=== PATIENT | male | born 1985 | race Caucasian/White ===

== ENCOUNTER 2021-10-28 20:21 | Emergency (ER) | payer OTHER, SELFPAY ==
--- NOTE | ~2021-10-28 | CT_ITS ---
EXAMINATION: CT abdomen pelvis w con EXAM DATE: 10/29/2021 00:02 INDICATION: mid and lower abdominal pain . TECHNIQUE: Spiral CT of the abdomen and pelvis was performed following intravenous injection of 100 m L Omnipaque 350. Axial, coronal and sagittal images of the abdomen and pelvis were reviewed. The do se-length product (DLP) for this examination was 437.93 mGy-cm. The exposure was tailored according to patient size (auto mA exposure control), and iterative reconstruction (ASIR) was used as additiona l dose reduction technique. Comparison is made to prior examination from 12/01/2017. FINDINGS: The liver, spleen, adrenal glands and pancreas are unremarkable. Gallbladder is unremarkab le. No biliary obstruction. Portal and splenic veins are patent. Kidneys enhance symmetrically. T here is no hydronephrosis. The prostate is unremarkable. The bladder is unremarkable. There is no retroperitoneal or pelvic lymphadenopathy. There is mild scattered arteriosclerotic disease. Small left inguinal fat-containing hernia. The appendix is not positively visualized. There is no pericecal inflammatory change to suggest appe ndicitis. Mild sigmoid diverticulosis and possible minimal adjacent inflammation, possible uncomplica aki diverticulitis. The stomach and small bowel are unremarkable. There is expected amount of colon ic stool. No free intraperitoneal gas. The heart is normal in size. There are no pericardial or pleural effusions. The lung bases are unremarkable. There are no osteoblastic or osteolytic lesions identified. There is bilateral L5 spondylolysis with grade 1 anterolisthesis L5 on S1. IMPRESSION: 1. Possible acute uncomplicated sigmoid diverticulitis. 2. Bilateral L5 spondylolysis, grade 1 anterolisthesis. Reviewed, dictated and finalized at location B. ITAL PERSONNEL DIRECTOR
[2021-10-28 20:28] VITALS: BP 135/104; PULSE 97; RESP 18; TEMP 37.2; O2SAT 99
[2021-10-28 22:29] VITALS: BP 125/88; PULSE 78; RESP 17; TEMP 37.3; O2SAT 100
[2021-10-28 23:19] LABS: Basophils Percent Auto 0.3 % (0.2-1.2); Eosinophils Percent Auto 0.1 % (0-4.4); Hematocrit 47.1 % (42.0-52.0); Hemoglobin 16.2 g/dL (14.0-18.0); Immature Granulocyte Absolute 0.01 K/mm3 (0.00-0.031); Immature Granulocyte Percent A 0.1 % (0-0.5); Lymphocytes Absolute Auto 1.85 K/mm3 (0.9-3.2); Lymphocytes Percent Auto 27.1 % (18.3-44.2); Mean Corpuscular HGB Conc 34.4 g/dl (32-36); Mean Corpuscular Hemoglobin 30.6 pg (26-34); Mean Platelet Volume 10.1 fl (7.4-10.4); Monocytes Absolute Auto 0.8 K/mm3 (0.1-0.6); Monocytes Percent Auto 12.3 % (2.6-8.5); Neutrophils Absolute Auto 4.1 K/mm3 (1.3-6.7); Neutrophils Percent Auto 60.1 % (45.5-73.1); Platelet Count Result 238 k/mm3 (150-375); Red Blood Count 5.29 M/mm3 (4.6-6.20); Red Cell Distribution Width 12.1 % (11.5-14.5); White Blood Count 6.8 K/mm3 (4.5-10.0)
[2021-10-28 23:21] VITALS: BP 140/93; PULSE 68; RESP 18; O2SAT 100
--- NOTE | 2021-10-28 23:22 | ED.ABDPAIN ---
HPI - Abdominal Pain General Chief Complaint: Abdominal Pain Stated Complaint: nausea, vomiting, diarrhea, cramps, heart burn Time Seen by Provider: 10/28/21 23:04 Source: patient History of Present Illness HPI narrative: 36-year-old male presented to the emergency department for evaluation of nausea vomiting and diarrhea with associated heartburn since last Friday. Patient states he began developing the symptoms on Friday. Patient states that his family also developed symptoms on Friday and Friday but their symptoms resolved. No one was tested for COVID. No is vaccinated against COVID. Patient denies any chest pain or shortness of breath. Patient's primary complaint is mid abdominal pain. Patient does have a prior history of an appendectomy a few years ago. Related Data Allergies Allergy/AdvReac Type Severity Reaction Status Date / Time No Known Allergies Allergy Verified 01/28/20 08:24 Review of Systems Review of Systems: CONSTITUTIONAL: Denies fever, chills, or sweats. EYES: Denies visual changes, redness, or discharge. ENT: Denies rhinorrhea, congestion, sore throat, or otalgia. CARDIOVASCULAR: Denies chest pain, palpitations, or edema. RESPIRATORY: Denies cough or dyspnea. GASTROINTESTINAL: Abdominal pain with associated nausea vomiting and diarrhea GENITOURINARY: Denies dysuria or hematuria. SKIN: Denies rash or itching. MUSCULOSKELETAL: Denies back pain, joint pain, or myalgia. All systems reviewed & are unremarkable except as noted in HPI and below PMFSH Family History Family History (System 01/28/20 @ 08:24 by Ekaterina Mcgee) Other Diabetes mellitus Social History Social History (System 01/28/20 @ 08:24 by Ekaterina Mcgee) Smoking status: Former smoker Alcohol intake: current Exam Narrative: APPEARANCE: Well appearing, no pain, no distress, well-nourished. HEAD: normocephalic, atraumatic. EYES: PERRLA/EOMI, conjunctivae clear. NECK: Supple. No adenopathy, no masses. RESPIRATORY: Airway patent, respirations nonlabored. Clear to auscultation bilaterally, no rales, rhonchi, wheezing. CARDIOVASCULAR: Regular rate and rhythm without murmurs rubs or gallops. ABDOMINAL: Soft, normal bowel sounds lower abdominal tenderness to palpation MUSCULOSKELETAL: Moves all extremities. Strength/ROM intact, No edema, No calf tenderness. NEURO: Alert. Cranial nerves II through XII intact. SKIN: Warm, dry. Normal Color PSYCHIATRIC: Normal affect/mood. Course Course Emergency Course: Patient was updated the results of his labs and imaging. Patient was started on antibiotics for diverticulitis in the emergency department. Patient was educated on the importance having close follow-up with his primary care physician and ultimately with GI. All questions and concerns were addressed. Patient was also educated on reasons to return to the emergency department. Patient was comfortable with the plan for discharge. Vital Signs Vital signs: Vital Signs Temperature 99.0 F 10/28/21 20:28 Pulse Rate 97 10/28/21 20:28 Respiratory Rate 18 10/28/21 20:28 Blood Pressure 135/104 H 10/28/21 20:28 Pulse Oximetry 99 10/28/21 20:28 Temperature 99.2 F 10/28/21 22:29 Pulse Rate 67 10/29/21 04:15 Respiratory Rate 18 10/29/21 04:15 Blood Pressure 110/70 10/29/21 04:15 Pulse Oximetry 96 10/29/21 04:15 MDM - Abdominal Pain Differential Diagnosis Differential diagnosis: Likely acute appendicitis, diverticulitis and small bowel obstruction Lab Data Attestation: I reviewed the patient's lab results. Result diagrams: 10/28/21 23:12 10/28/21 23:12 Labs: Lab Results 10/28/21 10/28/21 10/28/21 Range/Units 23:12 23:12 23:33 WBC 6.8 (4.5-10.0) K/mm3 RBC 5.29 (4.6-6.20) M/mm3 Hgb 16.2 (14.0-18.0) g/dL Hct 47.1 (42.0-52.0) % MCV 89.0 (80-100) fl MCH 30.6 (26-34) pg MCHC 34.4 (32-36) g/dl RDW 12.1 (11.5-14.5) % Plt C
[2021-10-28 23:30] LABS: Alanine Aminotransferase 74 U/L (4-50); Albumin Level 4.8 g/dL (3.5-5.1); Alkaline Phosphatase 62 U/L (38-126); Anion Gap 11 mmol/L (8-16); Aspartate Amino Transferase 42 U/L (17-59); Bilirubin,Total 0.7 mg/dL (0.2-1.3); Blood Urea Nitrogen 12 mg/dL (9-20); Calcium 9.4 mg/dL (8.4-10.2); Carbon Dioxide 24 mmol/L (22-30); Chloride 101 mmol/L (98-107); Estimated CRCL calculation 89 ml/min; Estimated Glomerular Filt Rate > 60; Glucose 89 mg/dL (65-110); Lipase 60 U/L (23-300); Potassium 4.1 mmol/L (3.4-5.0); Sodium 136 mmol/L (137-145)
[2021-10-28] MEDS: ONDANSETRON INJ 4 MG/2 ML VIAL IV PUSH (23:30)
[2021-10-28] MEDS: SODIUM CHLORIDE 0.9% IV 1,000 ML 999 ML IV CONT (23:31)
[2021-10-28 23:57] LABS: Add Urine Microscopic? YES; Appearance Urine Clear (Clear); Bilirubin Urine Negative (Negative); Blood Urine Negative (Negative); Color Urine Yellow (Yellow); Glucose Urine UA Negative (Negative); Ketones Urine 2+ mg/dL (Negative); Leukocyte Esterase Ur Negative LEU/UL (Negative); Mucus Urine Moderate /lpf; Nitrate Urine Negative (Negative); Protein Urine Negative (Negative); RBC Urine 0-2 /hpf (0-2); Specific Grav Ur 1.025 (1.001-1.035); Urobilinogen Urine Negative mg/dL (<2.0); WBC Urine 0-3 /hpf
[2021-10-29 00:36] VITALS: BP 129/74; PULSE 73; RESP 16; O2SAT 97
[2021-10-29 02:43] VITALS: BP 117/80; PULSE 63; RESP 16; O2SAT 97
[2021-10-29] MEDS: ONDANSETRON INJ 4 MG/2 ML VIAL IV PUSH (04:06)
[2021-10-29] MEDS: AMOXICILLIN/CLAVULANATE K 875-125 MG TAB 1 TABLET PO (04:07)
[2021-10-29] MEDS: HYDROcodone/acetaminophen (*CRX) 5-325 MG TABLET 1 TAB PO (04:07)
[2021-10-29 04:15] VITALS: BP 110/70; PULSE 67; RESP 18; O2SAT 96
[2021-11-01 08:56] LABS: SARS-CoV-2 RNA PCR Positive
== END 2021-10-29 04:14 | disposition home or self-care (01) ==
PROVIDERS: Physician Assistant; Emergency Provider Emergency Medicine; PCP Family Medicine
DX: U07.1 COVID-19 (principal); K57.32 Diverticulitis of large intestine without perforation or abscess without bleeding; Z87.891 Personal history of nicotine dependence; M43.06 Spondylolysis, lumbar region
CPT/HCPCS: 36415; 74177; 80053; 81001; 83690; 85025; 96365; 96374; 96375; 99284; A9270; C9803; J0131; J2405; J7030; Q9967; U0003; U0005

== ENCOUNTER 2021-11-19 14:45 | Emergency (ER) | payer OTHER, SELFPAY ==
--- NOTE | ~2021-11-19 | CT_ITS ---
EXAMINATION: CT abdomen pelvis w con DATE: 11/19/2021 17:05 INDICATION: Abscess. Nausea and vomiting. TECHNIQUE: Computed tomography (CT) of the abdomen and pelvis was performed with 100 mL Omnipaque 350 intravenous contrast. Automated exposure control and iterative reconstruction technique were employe d. The dose-length product was 345.26 mGy-cm. COMPARISON: CT abdomen and pelvis 10/28/2021 FINDINGS: The visualized portions of the lung bases demonstrate mild atelectasis. No pleural effusion . The heart size is normal. No pericardial effusion. The liver, gallbladder, spleen, pancreas, adrena l glands, and right kidney are normal. There is a 4 mm cyst in left kidney. There are no dilated loop s of bowel. The appendix is not visualized. There are no pathologically enlarged lymph nodes. There i s no free intraperitoneal fluid. There is no abscess. There is a left inguinal hernia containing fat. There are chronic bilateral L5 pars defects. There is 5 mm anterolisthesis of L5 on S1. There is mil d thoracolumbar spondylosis. IMPRESSION: 1. Left inguinal hernia containing fat. Reviewed, dictated and finalized at location A. ESS INSTALLER
[2021-11-19 15:06] VITALS: BP 117/78; PULSE 78; RESP 18; TEMP 37; O2SAT 99
--- NOTE | 2021-11-19 16:12 | ED.ABDPAIN ---
HPI - Abdominal Pain General Chief Complaint: Abdominal Pain Stated Complaint: abd pain Time Seen by Provider: 11/19/21 15:47 History of Present Illness HPI narrative: 36-year-old male presents to emergency room with lower left quadrant abdominal pain for 10 to 12 days. Patient states he was seen here 10 days ago diagnosed with diverticulitis, completed a course of Augmentin. Patient states he was seen in the urgent care today and told to come to the emergency room for further evaluation. Patient has been taking Dyess daily for abdominal pain. Patient states he has not had a bowel movement in over 3 days. Occasional nausea. Related Data Allergies Allergy/AdvReac Type Severity Reaction Status Date / Time hydromorphone [From Dilaudid] AdvReac Nausea and Verified 11/19/21 15:46 Vomiting Review of Systems Review of Systems: CONSTITUTIONAL: Denies fever, chills, or sweats. EYES: Denies visual changes, redness, or discharge. ENT: Denies rhinorrhea, congestion, sore throat, or otalgia. CARDIOVASCULAR: Denies chest pain, palpitations, or edema. RESPIRATORY: Denies cough or dyspnea. GASTROINTESTINAL: Reports abdominal pain, constipation GENITOURINARY: Denies dysuria or hematuria. SKIN: Denies rash or itching. MUSCULOSKELETAL: Denies back pain, joint pain, or myalgia. NEUROLOGIC: Denies headache, numbness, dizziness, or weakness. PSYCHIATRIC: Denies anxiety or depression. [facility] Family History Family History Mother Diabetes mellitus Heart disease Father Heart disease Social History Social History Smoking status: Current every day smoker Tobacco type: e-cigarettes/vaping Alcohol intake: current Exam Narrative: GENERAL: Well-appearing, well-nourished, and in no acute distress. HEAD: Normocephalic, atraumatic. EYES: PERRLA and EOMI. ENT: Nares clear, no rhinorrhea or epistaxis. Mucous membranes moist. NECK: Supple. No adenopathy or masses. No carotid bruits or JVD CHEST: Clear to auscultation. No respiratory distress. No wheezes rales or rhonchi HEART: Regular rate and rhythm. No murmur heard. Normal peripheral pulses. ABDOMEN: Soft, tenderness to left lower quadrant radiating to right lower quadrant, nondistended, hypoactive bowel sounds. EXTREMITIES: Normal range of motion. No edema. SKIN: Warm, dry, no rash. NEURO: No focal deficits. Alert and oriented x3. PSYCH: Normal mood and affect. Course Vital Signs Vital signs: Vital Signs Temperature 37.0 C 11/19/21 15:06 Pulse Rate 78 11/19/21 15:06 Respiratory Rate 18 11/19/21 15:06 Blood Pressure 117/78 11/19/21 15:06 Pulse Oximetry 99 11/19/21 15:06 Temperature 36.8 C 11/19/21 16:37 Pulse Rate 70 11/19/21 16:37 Respiratory Rate 16 11/19/21 16:37 Blood Pressure 114/68 11/19/21 16:37 Pulse Oximetry 100 11/19/21 16:37 MDM - Abdominal Pain MDM Narrative Medical decision making narrative: CBC and CMP were unremarkable. Scalp films show that patient has moderate to large stool retention. Will recommend patient start on a stool softener, and a clears diet to advance as tolerated. Lab Data Result diagrams: 11/19/21 16:20 11/19/21 16:20 Labs: Lab Results 11/19/21 11/19/21 11/19/21 Range/Units 16:20 16:20 16:20 WBC 8.9 (4.5-10.0) K/mm3 RBC 5.10 (4.6-6.20) M/mm3 Hgb 15.7 (14.0-18.0) g/dL Hct 46.2 (42.0-52.0) % MCV 90.6 (80-100) fl MCH 30.8 (26-34) pg MCHC 34.0 (32-36) g/dl RDW 12.3 (11.5-14.5) % Plt Count 301 (150-375) k/mm3 MPV 10.3 (7.4-10.4) fl Immature Gran % (Auto) 0.2 (0-0.5) % Neut % (Auto) 81.1 H (45.5-73.1) % Lymph % (Auto) 13.1 L (18.3-44.2) % Crane % (Auto) 5.2 (2.6-8.5) % Eos % (Auto) 0.1 (0-4.4) % Baso % (Auto) 0.3 (0.2-1.2) % Lymph # (Auto) 1.16 (0.9-3.2) K/mm3 Crane # (Auto)
[2021-11-19] MEDS: SODIUM CHLORIDE 0.9% IV 1,000 ML 999 ML IV CONT (16:22)
[2021-11-19 16:35] LABS: Basophils Percent Auto 0.3 % (0.2-1.2); Eosinophils Percent Auto 0.1 % (0-4.4); Hematocrit 46.2 % (42.0-52.0); Hemoglobin 15.7 g/dL (14.0-18.0); Immature Granulocyte Absolute 0.02 K/mm3 (0.00-0.031); Immature Granulocyte Percent A 0.2 % (0-0.5); Lymphocytes Absolute Auto 1.16 K/mm3 (0.9-3.2); Lymphocytes Percent Auto 13.1 % (18.3-44.2); Mean Corpuscular Hemoglobin 30.8 pg (26-34); Mean Corpuscular Volume 90.6 fl (80-100); Mean Platelet Volume 10.3 fl (7.4-10.4); Monocytes Absolute Auto 0.5 K/mm3 (0.1-0.6); Monocytes Percent Auto 5.2 % (2.6-8.5); Neutrophils Absolute Auto 7.2 K/mm3 (1.3-6.7); Neutrophils Percent Auto 81.1 % (45.5-73.1); Platelet Count Result 301 k/mm3 (150-375); Red Cell Distribution Width 12.3 % (11.5-14.5); White Blood Count 8.9 K/mm3 (4.5-10.0)
[2021-11-19 16:37] VITALS: BP 114/68; PULSE 70; RESP 16; TEMP 36.8; O2SAT 100
[2021-11-19 16:42] LABS: Add Urine Microscopic? YES; Appearance Urine Clear (Clear); Bilirubin Urine Negative (Negative); Blood Urine Negative (Negative); Color Urine Straw (Yellow); Glucose Urine UA Negative (Negative); Ketones Urine 1+ mg/dL (Negative); Leukocyte Esterase Ur Negative LEU/UL (Negative); Mucus Urine Rare /lpf; Nitrate Urine Negative (Negative); Protein Urine Negative (Negative); RBC Urine 0-2 /hpf (0-2); Specific Grav Ur 1.008 (1.001-1.035); Urobilinogen Urine Negative mg/dL (<2.0); WBC Urine 0-3 /hpf
[2021-11-19 16:47] LABS: Alanine Aminotransferase 146 U/L (4-50); Albumin Level 4.4 g/dL (3.5-5.1); Alkaline Phosphatase 62 U/L (38-126); Anion Gap 9 mmol/L (8-16); Aspartate Amino Transferase 45 U/L (17-59); Bilirubin,Total 0.7 mg/dL (0.2-1.3); Blood Urea Nitrogen 10 mg/dL (9-20); Calcium 8.8 mg/dL (8.4-10.2); Carbon Dioxide 25 mmol/L (22-30); Chloride 105 mmol/L (98-107); Estimated CRCL calculation 89 ml/min; Estimated Glomerular Filt Rate > 60; Glucose 86 mg/dL (65-110); Lipase 56 U/L (23-300); Potassium 3.8 mmol/L (3.4-5.0); Sodium 139 mmol/L (137-145)
[2021-11-19 17:33] VITALS: BP 112/64; PULSE 68; RESP 16; TEMP 36.3; O2SAT 99
== END 2021-11-19 17:45 | disposition home or self-care (01) ==
PROVIDERS: Emergency Medicine; Emergency Provider Nurse Practitioner Family; PCP Family Medicine
DX: R10.32 Left lower quadrant pain (principal); K59.00 Constipation, unspecified; F17.290 Nicotine dependence, other tobacco product, uncomplicated; K40.90 Unilateral inguinal hernia, without obstruction or gangrene, not specified as recurrent
CPT/HCPCS: 36415; 74177; 80053; 81001; 83690; 85025; 96360; 99284; J7030; Q9967

== ENCOUNTER 2022-01-08 15:40 | Emergency (ER) | payer OTHER, SELFPAY ==
--- NOTE | ~2022-01-08 | XR_ITS ---
EXAM: XR finger 1st LT min 2V HISTORY: hit distal left thumb with a hammer last night COMPARISON: None available FINDINGS: Minimally displaced and minimally comminuted fracture of the distal tuft of the left thumb . No other fracture detected. Normal mineralization. Joint spaces maintained. No radio opaque foreign body. IMPRESSION: Minimally displaced, mildly comminuted fracture of the distal tuft of the left thumb. Reviewed, dictated and finalized at location K.
[2022-01-08 15:56] VITALS: BP 131/95; PULSE 88; RESP 18; TEMP 36.5; O2SAT 97
--- NOTE | 2022-01-08 16:04 | ED.WOUNDLAC ---
HPI - Wound/Laceration General Chief Complaint: Wound/Laceration Stated Complaint: lt thumb injury-work related Time Seen by Provider: 01/08/22 16:02 Source: patient and RN notes reviewed Mode of arrival: ambulatory Limitations: no limitations History of Present Illness HPI narrative: 36-year-old male presents with concern for injury to the first digit of the left hand. Reports yesterday he hit the distal digit with a hammer. Reports pain, bruising. Reports bruising under the fingernail. He denies any open skin, lacerations, abrasions, warm. Reports a feeling of pressure under his nail. Related Data Allergies Allergy/AdvReac Type Severity Reaction Status Date / Time hydromorphone [From Dilaudid] AdvReac Nausea and Verified 01/08/22 16:00 Vomiting Review of Systems Review of Systems: CONSTITUTIONAL: Denies malaise, chills, sweats, or fever. SKIN: Reports bruising under the fingernail of the left first digit MUSCULOSKELETAL: Reports pain, swelling, bruising to the distal first digit of the left hand NEUROLOGIC: Denies numbness, weakness All systems reviewed & are unremarkable except as noted in HPI and below PMFSH Family History Family History Mother Diabetes mellitus Heart disease Father Heart disease Social History Social History Smoking status: Current every day smoker Tobacco type: e-cigarettes/vaping Alcohol intake: current Comments At time of signature, agree with nursing past medical, surgical, social and family history. There is no relevant family history pertinent to the presenting complaint Exam Narrative: GENERAL: Well-appearing, well-nourished, and in no acute distress. HEAD: Normocephalic EYES: PERRLA, conjunctivae clear NECK: Supple. CHEST: Speaks in full sentences. No respiratory distress. HEART: Regular rate and rhythm. Normal and equal peripheral pulses. EXTREMITIES: First digit of left hand has normal strength and sensation. 5/5 strength with digit flexion, extension. Range of motion normal. No clubbing, cyanosis, or edema noted. Ecchymosis and tenderness noted to the distal digit. Skin intact. Normal digital cascade with flexion of fingers, median, ulnar and radial nerve intact. Normal sensation of each side of finger. Can perform 'okay' sign, 'cross over finger test of index and middle fingers' and 'thumbs up' sign. No scissoring. Normal thumb opposition. Good capillary refill and radial pulse. Distal capillary refill less than 3 seconds. Patient is right/left hand dominant SKIN: Warn, dry, intact, pink. No rash. Subungual hematoma noted to the first digit of the left hand NEURO: Alert and oriented x3. PSYCH: Normal mood and affect Course Course Emergency Course: Patient is aware of diagnosis, understands and agrees to treatment plan. Anticipatory guidance given. Patient agrees to follow-up as directed and is aware of reasons to seek care at the emergency department. Portions of this record may have been created with voice recognition software Level of Care: Express Care Visit Vital Signs Vital signs: Vital Signs Temperature 97.7 F 01/08/22 15:56 Pulse Rate 88 01/08/22 15:56 Respiratory Rate 18 01/08/22 15:56 Blood Pressure 131/95 H 01/08/22 15:56 Pulse Oximetry 97 01/08/22 15:56 Temperature 97.7 F 01/08/22 15:56 Pulse Rate 88 01/08/22 15:56 Respiratory Rate 18 01/08/22 15:56 Blood Pressure 131/95 H 01/08/22 15:56 Pulse Oximetry 97 01/08/22 15:56 Reviewed. Procedures Nail Trephination Nail Trephination #1: Nail Trephination Date: 01/08/22 Time out: Yes Location (finger): left and thumb Sterile prep: betadine Method of drainage: nail cautery Procedure successful: Yes Patient tolerated procedure: well Nail Trephination Comment: Neosporin and sterile bandage applied MDM -
== END 2022-01-08 16:30 | disposition home or self-care (01) ==
PROVIDERS: Emergency Provider Nurse Practitioner
DX: S62.522A Displaced fracture of distal phalanx of left thumb, initial encounter for closed fracture (principal); W27.8XXA Contact with other nonpowered hand tool, initial encounter; S60.112A Contusion of left thumb with damage to nail, initial encounter; F17.290 Nicotine dependence, other tobacco product, uncomplicated
CPT/HCPCS: 11740; 29130; 73140; 99213; G0463

== ENCOUNTER 2022-04-11 16:03 | Emergency (ER) | payer OTHER, SELFPAY ==
--- NOTE | ~2022-04-11 | CT_ITS ---
EXAMINATION: CT abdomen pelvis w con DATE: 04/11/2022 19:46 INDICATION: Generalized abdominal pain. TECHNIQUE: Computed tomography (CT) of the abdomen and pelvis was performed with 100 mL Omnipaque 300 intravenous contrast. Automated exposure control and iterative reconstruction technique were employe d. The dose-length product was 317.29 mGy-cm. COMPARISON: CT abdomen and pelvis 11/19/21 FINDINGS: The visualized portions of the lung bases demonstrate mild atelectasis on the left. There i s a 3 mm nodule in right lower lobe, likely benign. No pleural effusion. The heart size is normal. No pericardial effusion. The liver, spleen, gallbladder, pancreas, adrenal glands, and right kidney are normal. There is a 5 mm cyst in left kidney. There is a left inguinal hernia containing fat. There a re no dilated loops of bowel. The appendix is not visualized. There are no pathologically enlarged ly mph nodes. There is no free intraperitoneal fluid. There are chronic bilateral L5 pars defects. There is 5 mm anterolisthesis of L5 on S1. There is mild thoracolumbar spondylosis. IMPRESSION: 1. Left inguinal hernia containing fat. Reviewed, dictated and finalized at location A.
[2022-04-11 16:40] VITALS: BP 132/81; PULSE 91; RESP 18; TEMP 37.2; O2SAT 99
[2022-04-11 17:29] LABS: Basophils Percent Auto 0.5 % (0.2-1.2); Eosinophils Absolute Auto 0.1 K/mm3 (0-0.3); Eosinophils Percent Auto 1.1 % (0-4.4); Hematocrit 46.2 % (42.0-52.0); Hemoglobin 16.4 g/dL (14.0-18.0); Immature Granulocyte Absolute 0.02 K/mm3 (0.00-0.031); Immature Granulocyte Percent A 0.2 % (0-0.5); Lymphocytes Absolute Auto 1.73 K/mm3 (0.9-3.2); Lymphocytes Percent Auto 19.8 % (18.3-44.2); Mean Corpuscular HGB Conc 35.5 g/dl (32-36); Mean Corpuscular Hemoglobin 30.7 pg (26-34); Mean Corpuscular Volume 86.4 fl (80-100); Mean Platelet Volume 10.1 fl (7.4-10.4); Monocytes Absolute Auto 0.7 K/mm3 (0.1-0.6); Monocytes Percent Auto 7.7 % (2.6-8.5); Neutrophils Absolute Auto 6.2 K/mm3 (1.3-6.7); Neutrophils Percent Auto 70.7 % (45.5-73.1); Platelet Count Result 320 k/mm3 (150-375); Red Blood Count 5.35 M/mm3 (4.6-6.20); Red Cell Distribution Width 12.5 % (11.5-14.5); White Blood Count 8.7 K/mm3 (4.5-10.0)
[2022-04-11 17:35] LABS: Appearance Urine Clear (Clear); Bilirubin Urine Negative (Negative); Blood Urine Negative (Negative); Color Urine Yellow (Yellow); Glucose Urine UA Negative (Negative); Ketones Urine Negative (Negative); Leukocyte Esterase Ur Negative LEU/UL (Negative); Nitrate Urine Negative (Negative); Protein Urine Negative (Negative); Urobilinogen Urine 0.2 mg/dL (<2.0)
[2022-04-11 17:38] LABS: Add Urine Microscopic? NO
[2022-04-11 17:41] LABS: Alanine Aminotransferase 69 U/L (6-50); Albumin Level 5.1 g/dL (3.5-5.1); Alkaline Phosphatase 74 U/L (38-126); Anion Gap 12 mmol/L (8-16); Aspartate Amino Transferase 34 U/L (17-59); Blood Urea Nitrogen 11 mg/dL (9-20); Carbon Dioxide 25 mmol/L (22-30); Chloride 103 mmol/L (98-107); Estimated CRCL calculation 88 ml/min; Estimated Glomerular Filt Rate > 60; Glucose 100 mg/dL (65-110); Lipase 81 U/L (23-300); Potassium 3.8 mmol/L (3.4-5.0); Sodium 140 mmol/L (137-145)
[2022-04-11 19:31] VITALS: BP 119/81; PULSE 82; RESP 16; O2SAT 98
--- NOTE | 2022-04-11 19:37 | ED.GENADULT ---
HPI - General Adult General Chief complaint: Abdominal Pain Stated complaint: Left Flank Pain Time Seen by Provider: 04/11/22 19:01 History of Present Illness HPI narrative: 29-year-old male history of diverticulitis presenting to the emergency department for evaluation of left lower and left upper abdominal pain. Patient states that 3 days ago he developed some left lower quadrant abdominal pain. Patient did have associated nausea and vomiting. Patient did start taking mag citrate to help with constipation and states that after having a large bowel movement that his pain did improve but is still persistent. Patient states that while his pain started in the left lower quadrant it is affecting his left upper quadrant more at this time. Patient denies any associated chest pain or shortness of breath Patient states he does still have pain but states the nausea is controlled at this point. Patient was diagnosed with an episode of diverticulitis back in October. Patient does have follow-up scheduled with GI on June 06 Related Data Allergies Allergy/AdvReac Type Severity Reaction Status Date / Time hydromorphone [From Dilaudid] AdvReac Nausea and Verified 03/29/22 11:20 Vomiting Review of Systems Review of Systems: CONSTITUTIONAL: Denies fever, chills, or sweats. EYES: Denies visual changes, redness, or discharge. ENT: Denies rhinorrhea, congestion, sore throat, or otalgia. CARDIOVASCULAR: Denies chest pain, palpitations, or edema. RESPIRATORY: Denies cough or dyspnea. GASTROINTESTINAL: See HPI GENITOURINARY: Denies dysuria or hematuria. SKIN: Denies rash or itching. MUSCULOSKELETAL: Denies back pain, joint pain, or myalgia. NEUROLOGIC: Denies headache, numbness, or weakness. PMFSH Past Medical History Medical History (Updated 04/12/22 @ 00:00 by [facility] Daemon) Left inguinal hernia Family History Family History Mother Diabetes mellitus Heart disease Father Heart disease Social History Social History Smoking status: Current every day smoker Tobacco type: e-cigarettes/vaping Alcohol intake: current Exam Narrative: APPEARANCE: Well appearing, no pain, no distress, well-nourished. HEAD: normocephalic, atraumatic. EYES: PERRLA/EOMI, conjunctivae clear. NOSE: Normal no drainage NECK: Supple. No adenopathy, no masses. RESPIRATORY: Airway patent, respirations nonlabored. Clear to auscultation bilaterally, no rales, rhonchi, wheezing. CARDIOVASCULAR: Regular rate and rhythm without murmurs rubs or gallops. ABDOMINAL: Soft, nontender, nondistended, normal bowel sounds. No reproducible tenderness to palpation. MUSCULOSKELETAL: Moves all extremities. Strength/ROM intact, No edema, No calf tenderness. NEURO: Alert. Cranial nerves II through XII intact. Grossly intact SKIN: Warm, dry. Normal Color Course Course Emergency Course: Patient was treated with IV pain meds and saline. CT scan to evaluate for diverticulitis was ordered. Scan showed a left inguinal fat-containing hernia with no evidence of small bowel obstruction. Patient will be discharged home with instructions to continue with MiraLAX. Patient will be instructed to continue Tylenol for pain control and will also be given Zofran for nausea control. Patient will be encouraged to have close follow-up with GI as scheduled. Affect. Patient was well-appearing at time of discharge from the emergency department. Vital Signs Vital signs: Vital Signs Temperature 98.9 F 04/11/22 16:40 Pulse Rate 91 04/11/22 16:40 Respiratory Rate 18 04/11/22 16:40 Blood Pressure 132/81 04/11/22 16:40 Pulse Oximetry 99 04/11/22 16:40 Oxygen Delivery Room Air 04/11/22 16:40 Temperature 98.9 F 04/11/22 16:40 Pulse Rate 60 04/11/22 21:13 Respiratory Rate 18 04/11/22 21:13 Blood Pressure 113/74 04/11/22 21:13 Pulse
[2022-04-11] MEDS: SODIUM CHLORIDE 0.9% IV 1,000 ML 999 ML IV CONT (20:03)
[2022-04-11 21:13] VITALS: BP 113/74; PULSE 60; RESP 18; O2SAT 99
== END 2022-04-11 21:14 | disposition home or self-care (01) ==
PROVIDERS: Emergency Medicine; Emergency Provider Emergency Medicine; PCP Family Medicine
DX: K40.90 Unilateral inguinal hernia, without obstruction or gangrene, not specified as recurrent (principal); R11.2 Nausea with vomiting, unspecified; F17.290 Nicotine dependence, other tobacco product, uncomplicated
CPT/HCPCS: 36415; 74177; 80053; 81003; 83690; 85025; 96365; 96374; 99284; J0131; J7030; Q9967

== ENCOUNTER 2022-05-29 12:28 | Emergency (ER) | payer OTHER, SELFPAY ==
[2022-05-29] VITALS (8 sets, daily range): BP systolic 108–128; BP diastolic 72–83; PULSE 56–80; RESP 11–18; TEMP 36.7; O2SAT 99–100
--- NOTE | ~2022-05-29 | CT_ITS ---
EXAMINATION: CT abdomen pelvis w con INDICATION: Left lower quadrant pain TECHNIQUE: Computed tomographic images of the abdomen and pelvis were obtained after the administrati on of 100 cc of Omnipaque 350 intravenous contrast. The dose-length product (DLP) was 324.87 mGy-cm. Automated exposure control and iterative reconstruction technique were employed. COMPARISON: 04/11/2022 FINDINGS: A stable nodule of the right lobe is consistent with old granulomatous disease. There is mi ld dependent atelectasis. The heart size is normal. The liver, spleen, pancreas, gallbladder, and adr enal glands are normal. The right kidney is unremarkable. There is a 5 mm cyst of the left kidney. No pathologically enlarged abdominal or pelvic lymph nodes are identified. There is no free intraperito aline gas or evidence of bowel obstruction. 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 There is a small left inguinal hernia containing fat. IMPRESSION: 1. No CT correlate for the patient's symptoms. Reviewed, dictated and finalized at location B.
--- NOTE | ~2022-05-29 | XR_ITS ---
EXAMINATION: XR chest 2V DATE: 05/29/2022 13:27 INDICATION: Chest pain. Epigastric abdominal pain. TECHNIQUE: Frontal and lateral views of the chest were obtained. COMPARISON: CT abdomen and pelvis 04/11/2022 FINDINGS: There is no pneumonia, pleural effusion, or pneumothorax. The heart size is normal. IMPRESSION: 1. No acute cardiopulmonary disease. Reviewed, dictated and finalized at location A.
--- NOTE | 2022-05-29 12:45 | ECG_ITS ---
Measurements Intervals [place] Rate: 72 P: 31 FL: 133 QRS: 19 QRSD: 90 T: 48 QT: 365 QTc: 400 Interpretive Statements SINUS RHYTHM BASELINE ARTIFACT- I, III, AVR, AVL, AVF NORMAL ECG NO PREVIOUS ECG AVAILABLE FOR COMPARISON Electronically Signed On 05-29-2022 15:05:54 CDT by Heri Erwin D.O.
[2022-05-29 13:20] LABS: Basophils Percent Auto 0.6 % (0.2-1.2); Eosinophils Absolute Auto 0.1 K/mm3 (0-0.3); Eosinophils Percent Auto 1.4 % (0-4.4); Hematocrit 46.9 % (42.0-52.0); Immature Granulocyte Absolute 0.01 K/mm3 (0.00-0.031); Immature Granulocyte Percent A 0.2 % (0-0.5); Lymphocytes Absolute Auto 1.57 K/mm3 (0.9-3.2); Lymphocytes Percent Auto 24.8 % (18.3-44.2); Mean Corpuscular HGB Conc 34.1 g/dl (32-36); Mean Corpuscular Hemoglobin 30.3 pg (26-34); Mean Corpuscular Volume 88.8 fl (80-100); Mean Platelet Volume 10.1 fl (7.4-10.4); Monocytes Absolute Auto 0.6 K/mm3 (0.1-0.6); Monocytes Percent Auto 9.2 % (2.6-8.5); Neutrophils Percent Auto 63.8 % (45.5-73.1); Platelet Count Result 293 k/mm3 (150-375); Red Blood Count 5.28 M/mm3 (4.6-6.20); Red Cell Distribution Width 12.5 % (11.5-14.5); White Blood Count 6.3 K/mm3 (4.5-10.0)
[2022-05-29 13:30] LABS: Alanine Aminotransferase 49 U/L (6-50); Alkaline Phosphatase 59 U/L (38-126); Anion Gap 13 mmol/L (8-16); Aspartate Amino Transferase 32 U/L (17-59); Blood Urea Nitrogen 13 mg/dL (9-20); Calcium 9.5 mg/dL (8.4-10.2); Carbon Dioxide 26 mmol/L (22-30); Chloride 101 mmol/L (98-107); Estimated CRCL calculation 88 ml/min; Estimated Glomerular Filt Rate > 60; Glucose 98 mg/dL (65-110); Lipase 59 U/L (23-300); Potassium 3.8 mmol/L (3.4-5.0); Sodium 140 mmol/L (137-145)
[2022-05-29 13:42] LABS: Prothrombin Time 13.2 Seconds (11.1-14.7); Troponin I < 0.012 ng/mL (0.000-0.034)
[2022-05-29 13:43] LABS: Partial Thromboplastin Time 30.4 SECONDS (22.3-36.8)
--- NOTE | 2022-05-29 15:02 | ED.CHESTPAIN ---
HPI - Chest Pain General Chief Complaint: Chest Pain <PRASHANTH Connor Last Filed: 05/29/22 20:36> Stated Complaint: chest pain, SOB <PRASHANTH Connor Last Filed: 05/29/22 20:36> Time Seen by Provider: 05/29/22 15:01 <PRSAHANTH Connor Last Filed: 05/29/22 20:36> History of Present Illness HPI narrative: Patient is a 37-year-old male here for evaluation of epigastric discomfort/chest pain for the past 2 weeks. He states the pain is intermittent in nature, and comes on without obvious trigger but is worse with certain positions. He states it is a sharp stabbing pain that remains in his epigastric region and also under his left ribs. He denies any cough, diaphoresis, difficulty breathing, fevers or chills. Additionally notes a pain in his left lower quadrant that is intermittent in nature as well, described as sharp and stabbing. He has a history of diverticulitis, states this feels different. His bowel movements have been normal, denies nausea currently but does state that he vomited once. No cardiac history. <PRASHANTH Connor Last Filed: 05/29/22 20:36> Related Data Allergies/Adverse Reactions: Allergies Allergy/AdvReac Type Severity Reaction Status Date / Time No Known Allergies Allergy Verified 05/29/22 12:49 <PRASHANTH Connor Last Filed: 05/29/22 20:36> Review of Systems Review of Systems: Gen: Denies fevers or chills Eyes: Denies eye pain or visual change ENT: Denies congestion Respiratory: Denies shortness of breath or cough CV: Denies chest pain or palpitations GI: Reports left lower /epigastric abdominal pain and vomiting Denies emesis or diarrhea denies burning, urgency, frequency or hematuria Musculoskeletal: Denies back pain or muscle pain Neuro: Denies numbness, tingling, weakness or focal weakness Skin: Denies rash Except as documented, all other systems reviewed and negative <PRASHANTH Connor Last Filed: 05/29/22 20:36> [facility] Past Medical History Medical History: Medical History (Updated 05/30/22 @ 00:00 by Carissa Apariciorayne) Left inguinal hernia <Shreya Mcfarland PA-C - Last Filed: 05/29/22 20:36> Family History Family History: Family History Mother Diabetes mellitus Heart disease Father Heart disease <PRASHANTH Connor Last Filed: 05/29/22 20:36> Social History Social History: Social History Smoking packs per day: 1 Smoking cigarettes per day: 20.0 Years smoked: 10 Smoking pack-years: 10.00 Smoking status: Current every day smoker Tobacco type: cigarettes Alcohol intake: never Substance use: never Spiritual care concerns: No <PRASHANTH Connor Last Filed: 05/29/22 20:36> Exam Narrative: APPEARANCE: Well appearing, no pain in distress, well-nourished. Head: Normocephalic and atraumatic. EYES: PERRLA/EOMI, conjunctivae clear NOSE: No nasal drainage EARS: External ear normal in appearance THROAT: Oropharynx is clear. Mucous membranes are moist. NECK: Supple. No adenopathy, no masses. RESPIRATORY: Airway patent, respirations nonlabored. Clear to auscultation bilaterally, no rales, rhonchi, wheezing. CARDIOVASCULAR: Regular rate and rhythm without murmurs, rubs, or gallops. ABDOMINAL: Tender to palpation in left lower quadrant. Normoactive bowel sounds. Soft, nondistended. No rebound tenderness or guarding. MUSCULOSKELETAL: Extremities are warm and well-perfused. Moves all extremities well. No edema. NEURO: Normal speech. No focal neurologic deficits. SKIN: Skin is warm and dry. No rashes. PSYCHIATRIC: Normal affect/mood.. <PRASHANTH Connor Last Filed: 05/29/22 20:36> Course COMPOSITION MIXER/PA Physician Supervision For this patient encounter, I reviewed the COMPOSITION MIXER or PA documentation, treatm
[2022-05-29] MEDS: SODIUM CHLORIDE 0.9% IV 1,000 ML 999 ML IV CONT (15:44)
[2022-05-29] MEDS: PANTOPRAZOLE SODIUM IV 40 MG VIAL IV PUSH (15:45)
[2022-05-29] MEDS: ONDANSETRON INJ 4 MG/2 ML VIAL IV PUSH (15:45)
[2022-05-29 16:12] LABS: Troponin I < 0.012 ng/mL (0.000-0.034)
[2022-05-29] MEDS: KETOROLAC 15 MG/ML VIAL (*BKC) IV PUSH (17:09)
== END 2022-05-29 18:08 | disposition home or self-care (01) ==
PROVIDERS: Emergency Provider Emergency Medicine; PCP Family Medicine
DX: R07.89 Other chest pain (principal); F17.210 Nicotine dependence, cigarettes, uncomplicated
CPT/HCPCS: 36415; 71046; 74177; 80053; 83690; 84484; 85025; 85610; 85730; 93005; 96361; 96374; 96375; 99284; C9113; J1885; J2405; J7030; Q9967

== ENCOUNTER 2022-06-06 08:00 | Outpatient (NON) | payer OTHER, SELFPAY | END 2022-06-06 08:01 | disposition home or self-care (01) | LOC: ANHLAB 06-07 08:12 | PROVIDERS: PCP Family Medicine; Visit Provider Internal Medicine Gastroenterology | DX: K57.92 Diverticulitis of intestine, part unspecified, without perforation or abscess without bleeding (principal) | CPT/HCPCS: 88305 ==

== ENCOUNTER 2022-09-16 16:43 | Emergency (ER) | payer OTHER, SELFPAY ==
--- NOTE | ~2022-09-16 | US_ITS ---
Testicular ultrasound with doppler. Indication: Left-sided pain and swelling. Technique: Real-time sonography the scrotum was performed. Color flow Doppler and Doppler spectral an alysis were performed. Findings: The testes are homogeneous in echotexture bilaterally. There is no evidence of an intrates ticular mass. The right testis measures 5.0 x 2.5 x 3.1 cm and the left 4.5 x 2.1 x 2.9 cm. There is color-flow seen to both testes. Arterial and venous spectral waveforms are seen in both testes. There is no sonographic evidence of torsion. Right epididymis unremarkable. Left epididymal head cyst vers us spermatocele measures 1.7 cm in diameter. Impression: No testicular mass or torsion. 1.7 cm left epididymal head cyst versus spermatocele. Reviewed, dictated and finalized at [facility]. [employer] Impression: No testicular mass or torsion. 1.7 cm left epididymal head cyst versus spermatocele.
[2022-09-16 16:53] VITALS: BP 134/84; PULSE 76; RESP 16; TEMP 36.7; O2SAT 98
--- NOTE | 2022-09-16 17:50 | ED.MALEGU ---
HPI - Male Genitourinary General Chief complaint: Urogenital-Male <Genet Danver DARRON, DO - Last Filed: 10/03/22 13:05> Stated complaint: lump on left testicle, pain <Genet Danver DARRON, DO - Last Filed: 10/03/22 13:05> Time Seen by Provider: 09/16/22 17:44 <Genet Layne III, DO - Last Filed: 10/03/22 13:05> History of Present Illness HPI Narrative: Pt presents with left testicular pain and swelling for a couple of days. Pt says he has had this in the past but not this bad and they said it was scar tissue but pt has never had an ultrasound. Pt says he has a history of a hernia in this area and it may be that. Pt denies urinary symptoms. <Genet Layne III, DO - Last Filed: 10/03/22 13:05> Related Data Home medications: Home Medications Medication Instructions Recorded Confirmed No Home Medications 09/24/22 09/24/22 <Genet Danver DARRON, DO - Last Filed: 10/03/22 13:05> Allergies/Adverse reactions: Allergies Allergy/AdvReac Type Severity Reaction Status Date / Time No Known Allergies Allergy Verified 09/24/22 12:05 <Genet Danver DARRON, DO - Last Filed: 10/03/22 13:05> Review of Systems Review of Systems: All systems reviewed & are unremarkable except as noted in HPI and below <Genet Danver DARRON, DO - Last Filed: 10/03/22 13:05> [facility] Past Medical History Medical History: Medical History Colon cancer screening Dysphagia Epigastric abdominal pain IBS (irritable bowel syndrome) Left inguinal hernia Nausea <Genet Danver DARRON, DO - Last Filed: 10/03/22 13:05> Family History Family History: Family History Mother Diabetes mellitus Heart disease Father Heart disease <Genet Danver DARRON, DO - Last Filed: 10/03/22 13:05> Social History Social History: Social History Smoking packs per day: 1 Smoking cigarettes per day: 20.0 Years smoked: 10 Smoking pack-years: 10.00 Smoking status: Current every day smoker Tobacco type: e-cigarettes/vaping Alcohol intake: current Substance use: never Lack of Food: Never True Current Housing: I Have Housing Concerned About Future Housing: No Difficulty Paying Gas/Electric Bills: No Difficulty Paying for Meds: No Currently Unemployed: No Education: High School Diploma/GED Difficulty w/ Childcare or Family Care: No Spiritual care concerns: No <Genet Igor Layne III, DO - Last Filed: 10/03/22 13:05> Exam Const: General: healthy appearing <Genet Igor Layne III, DO - Last Filed: 10/03/22 13:05> Nutritional Appearance: well nourished <Genet Igor Layne III, DO - Last Filed: 10/03/22 13:05> Limitations: no limitations <Genet Igor Layne III, DO - Last Filed: 10/03/22 13:05> Neck: Neck: normal visual inspection and no lymphadenopathy <Genet Igor Layne III, DO - Last Filed: 10/03/22 13:05> Chest: Chest palpation & inspection: normal inspection of the chest <Genet Igor Layne III, DO - Last Filed: 10/03/22 13:05> Resp: Effort & Inspection: normal respiratory effort <Genet Igor Layne III, DO - Last Filed: 10/03/22 13:05> Auscultation: clear to auscultation bilaterally <Genet Igor Layne III, DO - Last Filed: 10/03/22 13:05> Cardio: Rate: regular rate <Genet Igor Layne III, DO - Last Filed: 10/03/22 13:05> Rhythm: regular rhythm <Genet Igor Layne III, DO - Last Filed: 10/03/22 13:05> GI: GI Palp: Yes Soft to palpation and No Tenderness to palpation present (GI) <Genet Igor Layne III, DO - Last Filed: 10/03/22 13:05> Auscultation: normal bowel sounds <Genet Igor Layne III, DO - Last Filed: 10/03/22 13:05> : Penis: Yes normal penis <Genet Layne III, DO - Last Filed: 10/03/22 13:05> Scrotum: scrotal swelling (also tender in inguinal canal) on the left <Genet Umana
[2022-09-16 18:09] LABS: Add Urine Microscopic? NO; Appearance Urine Clear (Clear); Bilirubin Urine Negative (Negative); Blood Urine Negative (Negative); Color Urine Light Yellow (Yellow); Glucose Urine UA Negative (Negative); Ketones Urine Negative (Negative); Leukocyte Esterase Ur Negative LEU/UL (Negative); Nitrate Urine Negative (Negative); Protein Urine Negative (Negative); Urobilinogen Urine 0.2 mg/dL (<2.0)
[2022-09-16 23:27] VITALS: BP 118/78; PULSE 57; RESP 18; O2SAT 99
[2022-09-17 03:24] VITALS: BP 130/84; PULSE 59; RESP 18; O2SAT 100
== END 2022-09-17 06:01 | disposition home or self-care (01) ==
PROVIDERS: Emergency Medicine; Emergency Provider Preventive Medicine Aerospace Medicine; PCP Family Medicine
DX: N50.3 Cyst of epididymis (principal); K58.9 Irritable bowel syndrome, unspecified; F17.290 Nicotine dependence, other tobacco product, uncomplicated
CPT/HCPCS: 76870; 81003; 93976; 99284

== ENCOUNTER 2022-09-17 14:12 | Emergency (ER) | payer OTHER, SELFPAY ==
[2022-09-17 14:19] VITALS: BP 130/87; PULSE 62; RESP 20; TEMP 37.2; O2SAT 100
[2022-09-17 15:08] VITALS: BP 111/69; PULSE 53; RESP 14; O2SAT 99
--- NOTE | 2022-09-17 15:42 | ED.ANXIETY ---
HPI - Anxiety General Chief Complaint: Anxiety Stated Complaint: Throat swelling, ate peanut butter Time Seen by Provider: 09/17/22 15:34 History of Present Illness HPI narrative: Patient is a 37 yo male here for evaluation of tightness in the back of his throat for the past several hours. Patient denies history of allergic reactions. Unsure what he was exposed to. States that he feels short of breath. He is concerned that he ate a peanut bar and had symptoms afterwards, but he has been able to eat peanuts in the past without any allergic reaction. He also started Protonix and dicyclomine last week. no further complaints or symptoms. Related Data Allergies Allergy/AdvReac Type Severity Reaction Status Date / Time No Known Allergies Allergy Verified 09/13/22 10:30 Review of Systems Review of Systems: Gen: Denies fevers or chills Eyes: Denies eye pain or visual change ENT: Reports throat tightness Respiratory: Denies shortness of breath or cough CV: Denies chest pain or palpitations GI: Denies abdominal pain nausea, emesis or diarrhea : denies burning, urgency, frequency or hematuria Musculoskeletal: Denies back pain or muscle pain Neuro: Denies numbness, tingling, weakness or focal weakness Skin: Denies rash Except as documented, all other systems reviewed and negative PMFSH Past Medical History Medical History Colon cancer screening Dysphagia Epigastric abdominal pain IBS (irritable bowel syndrome) Left inguinal hernia Nausea Family History Family History Mother Diabetes mellitus Heart disease Father Heart disease Social History Social History Smoking packs per day: 1 Smoking cigarettes per day: 20.0 Years smoked: 10 Smoking pack-years: 10.00 Smoking status: Current every day smoker Tobacco type: e-cigarettes/vaping Alcohol intake: current Substance use: never Spiritual care concerns: No Exam Narrative: APPEARANCE: Well appearing, no pain in distress, well-nourished. Head: Normocephalic and atraumatic. EYES: PERRLA/EOMI, conjunctivae clear NOSE: No nasal drainage EARS: External ear normal in appearance THROAT: Oropharynx is clear. Mucous membranes are moist. NECK: Supple. No adenopathy, no masses. RESPIRATORY: Airway patent, respirations nonlabored. Clear to auscultation bilaterally, no rales, rhonchi, wheezing. CARDIOVASCULAR: Regular rate and rhythm without murmurs, rubs, or gallops. ABDOMINAL: Normoactive bowel sounds. Soft, nontender, nondistended. No rebound tenderness or guarding. MUSCULOSKELETAL: Extremities are warm and well-perfused. Moves all extremities well. No edema. NEURO: Normal speech. No focal neurologic deficits. SKIN: Skin is warm and dry. No rashes. PSYCHIATRIC: Normal affect/mood. Course Vital Signs Vital signs: Vital Signs Temperature 98.9 F 09/17/22 14:19 Pulse Rate 62 09/17/22 14:19 Respiratory Rate 20 09/17/22 14:19 Blood Pressure 130/87 09/17/22 14:19 Pulse Oximetry 100 09/17/22 14:19 Oxygen Delivery Room Air 09/17/22 14:19 Temperature 98.9 F 09/17/22 14:19 Pulse Rate 74 09/17/22 17:30 Respiratory Rate 14 09/17/22 17:30 Blood Pressure 120/74 09/17/22 17:30 Pulse Oximetry 97 09/17/22 17:30 Oxygen Delivery Room Air 09/17/22 15:08 MDM - Anxiety MDM Narrative Medical decision making narrative: 37-year-old male here for evaluation of throat tightness and difficulty breathing earlier today. Patient is nontoxic-appearing, speaking in full sentences, no respiratory distress. No signs of airway closure on exam. His vital signs are normal. He was given prednisone, Pepcid and Benadryl in the ED with resolution of his symptoms. Unclear etiology of patient's symptoms, possibly allergic versus anxiety type reaction. He will be dischar
[2022-09-17] MEDS: FAMOTIDINE 20 MG TABLET 40 MG PO (16:42)
[2022-09-17] MEDS: predniSONE 20 MG TABLET 40 MG PO (16:43)
[2022-09-17] MEDS: diphenhydrAMINE HCl CAP 25 MG CAPSULE 50 MG PO (16:43)
[2022-09-17 17:30] VITALS: BP 120/74; PULSE 74; RESP 14; O2SAT 97
== END 2022-09-17 17:30 | disposition home or self-care (01) ==
PROVIDERS: Emergency Provider Physician Assistant; PCP Family Medicine
DX: T78.40XA Allergy, unspecified, initial encounter (principal); F17.210 Nicotine dependence, cigarettes, uncomplicated
CPT/HCPCS: 99283; A9270; J7512

== ENCOUNTER 2022-10-18 18:28 | Emergency (ER) | payer OTHER, SELFPAY ==
[2022-10-18] VITALS (7 sets, daily range): BP systolic 113–126; BP diastolic 66–92; PULSE 62–91; RESP 11–17; TEMP 36.4–36.9; O2SAT 97–99
--- NOTE | ~2022-10-18 | XR_ITS ---
EXAMINATION: XR chest 2V DATE: 10/18/2022 19:43 INDICATION: Chest pain and cough TECHNIQUE: PA and lateral views of the chest are obtained. COMPARISON: 05/29/2022 FINDINGS: The lungs are free of acute opacities. No pleural effusion or pneumothorax. The cardiomedia stinal silhouette is normal. The visualized bones and soft tissues are unremarkable. IMPRESSION: 1. No acute cardiopulmonary abnormality. 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
[2022-10-18 19:15] LABS: Influenza A QL RT-PCR Negative (Negative); Influenza B QL RT-PCR Negative (Negative); RSV RNA, RT-PCR Negative (Negative); SARS-CoV-2 RNA PCR Negative
--- NOTE | 2022-10-18 19:19 | ECG_ITS ---
Measurements Intervals [place] Rate: 65 P: 37 AK: 148 QRS: 16 QRSD: 86 T: 29 QT: 355 QTc: 370 Interpretive Statements SINUS RHYTHM WITH MARKED SINUS ARRHYTHMIA NORMAL ECG COMPARED TO ECG 05/29/2022 12:55:17 SINUS ARRHYTHMIA NOW PRESENT Electronically Signed On 10-19-2022 7:38:42 [employer]ST[employer] by Heri Erwin D.O.
--- NOTE | 2022-10-18 19:21 | ED.GENADULT ---
HPI - General Adult General Chief complaint: Upper Respiratory Infection Stated complaint: sinus infection, shortness of breath Time Seen by Provider: 10/18/22 18:58 History of Present Illness HPI narrative: Patient is a 37-year-old male who presents ER with multiple complaints. Reports for the last week he has been having sinus congestion sore throat and cough. Reports over the last couple days he feels like it is gone down into his chest he has central chest discomfort with deep breath and with coughing. Reports chest discomfort with exertion as well as shortness of breath. No history of VT but his PCP was concerned and referred him here for further evaluation. He has not been taking any pain medication at home. He also reports that has been having throbbing headache and body aches. No numbness or tingling. He endorses fullness in his ear is associate with this. He has been taking Augmentin daily for his sinus infection is also been on benzonatate for cough. Related Data Home Medications Medication Instructions Recorded Confirmed epinephrine 0.3 mg/0.3 mL 0.3 mg PRN 10/17/22 10/17/22 injection, auto-injector (EpiPen 2-Aly) Allergies Allergy/AdvReac Type Severity Reaction Status Date / Time No Known Allergies Allergy Verified 10/18/22 20:22 Review of Systems Review of Systems: All systems reviewed & are unremarkable except as noted in HPI and below Constitutional: Constitutional: Denies chills, Reports fatigue and Denies fever(s) ENT: Reports nasal congestion and Reports sore throat Comments: Ear fullness Cardiovascular: Cardiovascular: Reports chest pain, Denies rapid heart rate and Denies radiating jaw, neck or arm pain Respiratory: Respiratory: Reports cough, Reports dyspnea and Denies wheezing Gastrointestinal: Gastrointestinal: Reports abdominal pain, Reports constipation, Denies nausea and Denies vomiting Neurologic: Reports headache(s), Denies focal weakness and Denies numbness PMF Past Medical History Medical History (Updated 10/18/22 @ 21:33 by Dante Buitrago MD) Colon cancer screening Diverticulitis Dysphagia Epigastric abdominal pain IBS (irritable bowel syndrome) Left inguinal hernia Nausea Family History Family History Mother Diabetes mellitus Heart disease Father Heart disease Social History Social History (Reviewed 10/14/22 @ 13:46 by Sheyla Leach Smoking packs per day: 1 Smoking cigarettes per day: 20.0 Years smoked: 10 Smoking pack-years: 10.00 Smoking status: Current every day smoker Tobacco type: cigarettes Alcohol intake: current Substance use: never Substance use type: does not use Lack of Food: Never True Current Housing: I Have Housing Concerned About Future Housing: No Difficulty Paying Gas/Electric Bills: No Difficulty Paying for Meds: No Currently Unemployed: No Education: High School Diploma/GED Difficulty w/ Childcare or Family Care: No Living arrangements: alone Spiritual care concerns: No Exam Narrative: GENERAL: Well-appearing, well-nourished, and in no acute distress. HEAD: Normocephalic, atraumatic. ENT: Left TM inflammed compared to right, bilateral ears popped with manipulation of the external ear. CHEST: Clear to auscultation. No respiratory distress. HEART: Regular rate and rhythm. Normal peripheral pulses. ABDOMEN: Soft, nontender, nondistended. EXTREMITIES: Normal range of motion. No edema. SKIN: Warm, dry, no rash. NEURO: Alert and oriented x3. PSYCH: Normal mood and affect. Course Course Emergency Course: Patient resting comfortably in bed and in no distress. Informed of results. Chest discomfort improved with Toradol. PERC negative. Symptoms felt to be musculoskeletal in nature. Discharged on naproxen. Vital Signs Vital signs: Vital Signs Temperature 97.6 F 10/18/22 18:31 Pulse Rate 91 10/18/22 18:31 Resp
[2022-10-18 20:10] LABS: Basophils Percent Auto 0.5 % (0.2-1.2); Eosinophils Absolute Auto 0.1 K/mm3 (0-0.3); Hematocrit 44.7 % (42.0-52.0); Hemoglobin 15.3 g/dL (14.0-18.0); Immature Granulocyte Absolute 0.03 K/mm3 (0.00-0.031); Immature Granulocyte Percent A 0.4 % (0-0.5); Lymphocytes Absolute Auto 1.48 K/mm3 (0.9-3.2); Lymphocytes Percent Auto 18.8 % (18.3-44.2); Mean Corpuscular HGB Conc 34.2 g/dl (32-36); Mean Corpuscular Hemoglobin 30.7 pg (26-34); Mean Corpuscular Volume 89.6 fl (80-100); Monocytes Absolute Auto 0.9 K/mm3 (0.1-0.6); Monocytes Percent Auto 11.8 % (2.6-8.5); Neutrophils Absolute Auto 5.3 K/mm3 (1.3-6.7); Neutrophils Percent Auto 67.5 % (45.5-73.1); Platelet Count Result 311 k/mm3 (150-375); Red Blood Count 4.99 M/mm3 (4.6-6.20); White Blood Count 7.9 K/mm3 (4.5-10.0)
[2022-10-18] MEDS: KETOROLAC 30 MG/ML VIAL (*BKC) IV PUSH (20:22)
[2022-10-18 20:23] LABS: Anion Gap 6 mmol/L (8-16); Blood Urea Nitrogen 8 mg/dL (9-20); Calcium 9.2 mg/dL (8.4-10.2); Carbon Dioxide 32 mmol/L (22-30); Chloride 100 mmol/L (98-107); Estimated CRCL calculation 94 ml/min; Estimated Glomerular Filt Rate > 60; Glucose 89 mg/dL (65-110); Potassium 3.8 mmol/L (3.4-5.0); Sodium 138 mmol/L (137-145)
[2022-10-18 20:33] LABS: Troponin I < 0.012 ng/mL (0.000-0.034)
== END 2022-10-18 22:09 | disposition home or self-care (01) ==
PROVIDERS: Emergency Medicine; Emergency Provider Emergency Medicine; PCP Family Medicine
DX: R07.89 Other chest pain (principal); Z20.822 Contact with and (suspected) exposure to COVID-19; K58.9 Irritable bowel syndrome, unspecified; F17.210 Nicotine dependence, cigarettes, uncomplicated
CPT/HCPCS: 36415; 71046; 80048; 84484; 85025; 87637; 93005; 99284; J1885

== ENCOUNTER 2022-10-31 09:00 | Outpatient (NON) | payer OTHER, SELFPAY | END 2022-10-31 09:01 | disposition home or self-care (01) | LOC: ANHLAB 11-01 09:04 | PROVIDERS: PCP Family Medicine; Visit Provider Internal Medicine Gastroenterology | DX: R10.13 Epigastric pain (principal) | CPT/HCPCS: 88305 ==

== ENCOUNTER 2022-10-31 11:04 | Day surgery (SDC) | payer OTHER, SELFPAY ==
[2022-10-17 09:22] VITALS: BMI 24.4
--- NOTE | 2022-10-30 14:57 | PM.HPGS ---
History of Present Illness History of Present Illness Consent: Risks, benefits, and alternatives have been discussed and questions answered. Patient agrees to proceed with procedure. Chief complaint: Epigastric Pain, Nausea and Dysphagia Narrative: Fransisco Yoon is a 37 year old male Referred for endoscopy because of difficulty with swallowing solid food. He also has had epigastric discomfort. He takes Naprosyn 2 or 3 times a day. Review of Systems Review of Systems: All systems reviewed & are unremarkable except as noted in HPI and below PMFSH Past Medical History Medical History Colon cancer screening Diverticulitis Dysphagia Epigastric abdominal pain IBS (irritable bowel syndrome) Left inguinal hernia Nausea Surgical History Surgical History History of appendectomy Family History Family History Mother Diabetes mellitus Heart disease Father Heart disease Social History Social History Smoking packs per day: 1 Smoking cigarettes per day: 20.0 Years smoked: 10 Smoking pack-years: 10.00 Smoking status: Current every day smoker Tobacco type: cigarettes Alcohol intake: current Substance use: never Substance use type: does not use Lack of Food: Never True Current Housing: I Have Housing Concerned About Future Housing: No Difficulty Paying Gas/Electric Bills: No Difficulty Paying for Meds: No Currently Unemployed: No Education: High School Diploma/GED Difficulty w/ Childcare or Family Care: No Living arrangements: alone Spiritual care concerns: No Meds Home Medications and Allergies Home Medications Medication Instructions Recorded Confirmed Type epinephrine 0.3 mg/0.3 mL 0.3 mg PRN 10/17/22 10/31/22 History injection, auto-injector (EpiPen 2-Aly) naproxen 375 mg tablet 375 mg PO BID #14 tabs 10/18/22 10/31/22 Rx tobramycin 0.3 %-dexamethasone 0.1 1 drp ophthalmic (eye) Q6H #5 mL 10/31/22 10/31/22 Rx % eye drops,suspension Allergies Allergy/AdvReac Type Severity Reaction Status Date / Time No Known Allergies Allergy Verified 02/09/23 12:15 Exam Const: General: alert Orientation/consciousness: patient oriented x3 Resp: Auscultation: clear to auscultation bilaterally Cardio: Rhythm: regular rhythm GI: GI Palp: Yes Soft to palpation and No Tenderness to palpation present (GI) Neuro: General: patient oriented x3 Assessment and Plan Assessment and plan (1) Dysphagia: Code(s): R13.10 - Dysphagia, unspecified Status: Acute Assessment and Plan: EGD with possible biopsy or dilatation or cautery.
[2022-10-31 11:35] VITALS: BP 117/81; PULSE 60; RESP 18; TEMP 36.8; O2SAT 97
[2022-10-31] MEDS: LACTATED RINGERS 1,000 ML 150 ML IV CONT (12:20)
--- NOTE | 2022-10-31 12:56 | WPDANESEPPF ---
Anes - Initial Pre Proc Eval Procedure: Operation Date: 10/31/22 13:30 Proposed Procedures p Esophagogastroduodenoscopy - Vernon Peres MD Date/Time: 10/31/22 12:56 Surgeon: Vernon Peres MD Pre Op Diagnosis: Epigastric Pain, Nausea and Dysphagia Patient Data Age: 37 Gender: M Height: 1.75 m Weight: 84.8 kg Last Vital Signs Temp 36.8 C 10/31/22 11:35 Pulse 60 10/31/22 11:35 Resp 18 10/31/22 11:35 BP 117/81 10/31/22 11:35 Pulse Ox 97 10/31/22 11:35 O2 Del Method Room Air 10/31/22 11:35 Allergies Allergy/AdvReac Type Severity Reaction Status Date / Time No Known Allergies Allergy Verified 10/31/22 12:15 Home Medications Medication Instructions Recorded Confirmed Type epinephrine 0.3 mg/0.3 mL 0.3 mg PRN 10/17/22 10/31/22 History injection, auto-injector (EpiPen 2-Aly) naproxen 375 mg tablet 375 mg PO BID #14 tabs 10/18/22 10/31/22 Rx tobramycin 0.3 %-dexamethasone 0.1 1 drp ophthalmic (eye) Q6H #5 mL 10/31/22 10/31/22 Rx % eye drops,suspension Patient hx anesthesia problems: none Family hx anesthesia problems: none Results Review: All pre-operative results and documents have been reviewed as part of the pre-operative evaluation. [facility] Past Medical History Medical History Colon cancer screening Diverticulitis Dysphagia Epigastric abdominal pain IBS (irritable bowel syndrome) Left inguinal hernia Nausea Surgical History Surgical History (Updated 10/31/22 @ 12:57 by Terry Negrete MD) History of appendectomy Family History Family History Mother Diabetes mellitus Heart disease Father Heart disease Social History Social History Smoking packs per day: 1 Smoking cigarettes per day: 20.0 Years smoked: 10 Smoking pack-years: 10.00 Smoking status: Current every day smoker Tobacco type: cigarettes Alcohol intake: current Substance use: never Substance use type: does not use Lack of Food: Never True Current Housing: I Have Housing Concerned About Future Housing: No Difficulty Paying Gas/Electric Bills: No Difficulty Paying for Meds: No Currently Unemployed: No Education: High School Diploma/GED Difficulty w/ Childcare or Family Care: No Living arrangements: alone Spiritual care concerns: No Anes - Eval Final PreProcedure Day of Procedure 10/31/22 12:56 Patient weight: normal Heart: regular rate and rhythm Lungs: clear to auscultation Airway: Mallampati scale class II Neurological: alert and oriented Last oral intake: >/= 8 hours ASA classification: II Emergent: no Anesthetic plan: proceed Anesthesia type and monitoring: general GIVS and standard monitoring Results Review: All pre-operative results and documents have been reviewed as part of the pre-operative evaluation. Informed Consent: The patient's anesthetic plan and its attendant risks and benefits were discussed with the patient/family/POA. Questions were solicited and answers provided to the satisfaction of the patient/family/POA.
[2022-10-31 13:45] VITALS: BP 104/74; PULSE 97; RESP 16; O2SAT 97
[2022-10-31 13:55] VITALS: BP 101/74; PULSE 70; RESP 16; O2SAT 96
--- NOTE | 2022-10-31 13:57 | WPDANESPN ---
Anes - Prog Note Post-Op Date/Time: 10/31/22 13:57 Cardiovascular status: normal Respiratory status: normal Airway patency: baseline Mental status: baseline Post-Op hydration status: normal Vital Signs: Last Vital Signs Temp 36.8 C 10/31/22 11:35 Pulse 97 10/31/22 13:45 Resp 16 10/31/22 13:45 BP 104/74 10/31/22 13:45 Pulse Ox 97 10/31/22 13:45 O2 Del Method Room Air 10/31/22 13:45 Pain Score (VAS): 0/10 I/O: Intake & Output 10/30/22 10/31/22 10/31/22 23:59 07:59 15:59 Intake Total 600 Balance 600 Patient Feedback: Patient satisfied with anesthetic care.
[2022-10-31 14:05] VITALS: BP 104/78; PULSE 68; RESP 16; O2SAT 98
--- NOTE | 2022-10-31 14:36 | SUR.PHASEII ---
1430; PT AWAKE AND ALERT. EATING AND DRINKING. DENIES PAIN. STATES READY TO GO HOME.
== END 2022-10-31 14:45 | disposition home or self-care (01) ==
PROVIDERS: PCP Family Medicine; Visit Provider Internal Medicine Gastroenterology
PROC: 0DJ08ZZ Inspection of Upper Intestinal Tract, Via Natural or Artificial Opening Endoscopic (ICD-10-PCS; CPT 43235; principal; 2022-10-31 13:30)
DX: R13.10 Dysphagia, unspecified (principal)
CPT/HCPCS: 43239

== ENCOUNTER 2023-05-21 08:33 | Emergency (ER) | payer OTHER, SELFPAY ==
[2023-05-21 08:44] VITALS: BP 137/85; PULSE 77; RESP 18; TEMP 36.2; O2SAT 98
--- NOTE | 2023-05-21 08:58 | ED.EAR ---
HPI - Ear Problem General Chief complaint: Ear Stated complaint: Lt Ear Irritation Time Seen by Provider: 05/21/23 08:58 Source: patient Mode of arrival: ambulatory Limitations: no limitations History of Present Illness HPI Narrative: 38-year-old male presented for complaint of left ear pain for about 3 days. States he has felt sharp pains in the ear, occasional dizziness, and endorses associated sinus congestion nasal drainage. Denies tinnitus, ear drainage, nausea, vomiting, fevers or chills. He took [id number] sinus medication yesterday. He has not been swimming. He uses earplugs and ear phones. MD Complaint: ear pain Related Data Home Medications Medication Instructions Recorded Confirmed epinephrine 0.3 mg/0.3 mL 0.3 mg PRN PRN Anaphylaxis 10/17/22 05/21/23 injection, auto-injector (EpiPen 2-Aly) Allergies Allergy/AdvReac Type Severity Reaction Status Date / Time No Known Allergies Allergy Verified 05/21/23 08:41 Review of Systems Review of Systems: CONSTITUTIONAL: Denies malaise, chills, or fever. EYES: Denies visual changes, redness, or discharge. ENT: Denies rhinorrhea, congestion, sinus pain, and sore throat. Reports ear pain CARDIOVASCULAR: Denies chest pain, palpitations, or edema. RESPIRATORY: Denies cough or dyspnea. GASTROINTESTINAL: Denies abdominal pain, nausea, vomiting, diarrhea SKIN: Denies rash or itching. MUSCULOSKELETAL: Denies myalgia. NEUROLOGIC: Denies headache. All systems reviewed & are unremarkable except as noted in HPI and below PMFSH Past Medical History Medical History Colon cancer screening Diverticulitis Dysphagia Epigastric abdominal pain IBS (irritable bowel syndrome) Left inguinal hernia Nausea Surgical History Surgical History History of appendectomy Family History Family History Mother Diabetes mellitus Heart disease Father Heart disease Social History Social History Smoking packs per day: 1 Smoking cigarettes per day: 20.0 Years smoked: 10 Smoking pack-years: 10.00 Smoking status: Current every day smoker Tobacco type: cigarettes Alcohol intake: current Substance use: never Substance use type: does not use Lack of Food: Never True Current Housing: I Have Housing Concerned About Future Housing: No Difficulty Paying Gas/Electric Bills: No Difficulty Paying for Meds: No Currently Unemployed: No Education: High School Diploma/GED Difficulty w/ Childcare or Family Care: No Living arrangements: alone Spiritual care concerns: No Comments At time of signature, agree with nursing past medical, surgical, social and family history. There is no relevant family history pertinent to the presenting complaint Exam Narrative: GENERAL: Well-appearing, well-nourished, and in no acute distress. HEAD: Normocephalic EYES: PERRLA, conjunctivae clear ENT: Nares clear. Mucous membranes moist. Right tM pearly walls with dull light reflex; left TM erythematous with purulent effusion; no tragal or mastoid tenderness. Oropharynx not erythematous without lesions. NECK: Supple. No lymphadenopathy CHEST: Clear to auscultation, breath sounds equal. HEART: Regular rate and rhythm. No murmur heard. SKIN: Warm, dry, no rash. NEURO: Alert and oriented x3. PSYCH: Normal mood and affect Course Course Emergency Course: Patient is aware of diagnosis, understands and agrees to treatment plan. Anticipatory guidance given. Patient agrees to follow-up as directed and is aware of reasons to seek care at the emergency department. Portions of this record may have been created with voice recognition software Level of Care: Express Care Visit Vital Signs Vital signs: Vital Signs Temperature
== END 2023-05-21 09:06 | disposition home or self-care (01) ==
PROVIDERS: Emergency Provider Nurse Practitioner Family; PCP Family Medicine
DX: H66.002 Acute suppurative otitis media without spontaneous rupture of ear drum, left ear (principal); F17.210 Nicotine dependence, cigarettes, uncomplicated
CPT/HCPCS: 99213; G0463

== ENCOUNTER 2023-06-02 11:45 | Emergency (ER) | payer OTHER, SELFPAY ==
[2023-06-02] VITALS (12 sets, daily range): BP systolic 116–132; BP diastolic 74–84; PULSE 52–80; RESP 16–19; TEMP 36.6; O2SAT 92–100
--- NOTE | ~2023-06-02 | CT_ITS ---
EXAMINATION: CT abdomen pelvis w con DATE: 06/02/2023 16:19 INDICATION: Abdominal pain, being treated for diverti TECHNIQUE: Computed tomography (CT) of the abdomen and pelvis was performed with 100 mL Omnipaque-350 intravenous contrast. Automated exposure control and iterative reconstruction technique were employe d. The dose-length product was 473.74 mGy-cm. COMPARISON: 05/29/2022, 04/11/2022. FINDINGS: Lower thorax: Unremarkable Liver: Normal. Biliary/Gallbladder: Gallbladder is normal. No bile duct dilation. Pancreas: No mass or duct dilation. Spleen: Normal. Adrenals:No mass. Kidneys: Tiny left midpole hypodensity, too small to characterize but most likely represents a cyst. No suspicious mass, obstructing stone, or hydronephrosis. GI tract: No small or large bowel dilation. Appendix not visualized. Mesentery/Peritoneum: No ascites, mass, or free air. Retroperitoneum: No mass. Atherosclerotic abdominal aortic and/or arterial calcifications. Pelvis: Pelvic organs are within normal limits. Soft Tissues: Small uncomplicated appearing fat-containing umbilical hernia. Bones: No acute osseous finding. Bilateral L5 pars defects. IMPRESSION: No acute abdominopelvic process detected Reviewed, dictated and finalized at location K.
--- NOTE | ~2023-06-02 | CT_ITS ---
EXAMINATION: CT brain wo con DATE: 06/02/2023 16:17 INDICATION: Headache . TECHNIQUE: Computed tomography (CT) of the head was performed without intravenous contrast. The mA wa s adjusted according to patient size. Iterative reconstruction technique was employed. The dose-lengt h product was 605.33 mGy-cm. COMPARISON: None. FINDINGS: No acute intracranial hemorrhage or extra-axial fluid collection. No hydrocephalus, mass, or herniation. No acute ischemic infarct. Unremarkable dural venous sinus attenuation. No acute osseous abnormality. The aerated spaces are clear. IMPRESSION: No acute intracranial process. Reviewed, dictated and finalized at location K.
[2023-06-02 12:49] LABS: Basophils Percent Auto 0.4 % (0.2-1.2); Eosinophils Absolute Auto 0.1 K/mm3 (0-0.3); Eosinophils Percent Auto 0.8 % (0-4.4); Hematocrit 47.7 % (42.0-52.0); Hemoglobin 16.1 g/dL (14.0-18.0); Immature Granulocyte Absolute 0.03 K/mm3 (0.00-0.031); Immature Granulocyte Percent A 0.3 % (0-0.5); Lymphocytes Absolute Auto 1.95 K/mm3 (0.9-3.2); Mean Corpuscular HGB Conc 33.8 g/dl (32-36); Mean Corpuscular Hemoglobin 30.3 pg (26-34); Mean Corpuscular Volume 89.7 fl (80-100); Mean Platelet Volume 10.2 fl (7.4-10.4); Monocytes Absolute Auto 0.7 K/mm3 (0.1-0.6); Monocytes Percent Auto 6.9 % (2.6-8.5); Neutrophils Percent Auto 71.6 % (45.5-73.1); Platelet Count Result 295 k/mm3 (150-375); Red Blood Count 5.32 M/mm3 (4.6-6.20); Red Cell Distribution Width 12.8 % (11.5-14.5); White Blood Count 9.8 K/mm3 (4.5-10.0)
[2023-06-02 12:58] LABS: Alanine Aminotransferase 39 U/L (6-50); Albumin Level 4.6 g/dL (3.5-5.1); Alkaline Phosphatase 53 U/L (38-126); Anion Gap 10 mmol/L (8-16); Aspartate Amino Transferase 29 U/L (17-59); Bilirubin,Total 0.6 mg/dL (0.2-1.3); Blood Urea Nitrogen 16 mg/dL (9-20); Calcium 9.4 mg/dL (8.4-10.2); Carbon Dioxide 27 mmol/L (22-30); Chloride 103 mmol/L (98-107); Estimated CRCL calculation 77 ml/min; Estimated Glomerular Filt Rate > 60; Glucose 96 mg/dL (65-110); Lipase 102 U/L (23-300); Potassium 4.1 mmol/L (3.4-5.0); Sodium 140 mmol/L (137-145)
[2023-06-02 14:45] LABS: Appearance Urine Clear (Clear); Bilirubin Urine Negative (Negative); Blood Urine Negative (Negative); Color Urine Yellow (Yellow); Glucose Urine UA Negative (Negative); Ketones Urine Negative (Negative); Leukocyte Esterase Ur Negative LEU/UL (Negative); Nitrate Urine Negative (Negative); Protein Urine Negative (Negative); Specific Grav Ur 1.011 (1.001-1.035); Urobilinogen Urine 0.2 mg/dL (<2.0)
[2023-06-02 14:56] LABS: Add Urine Microscopic? NO
[2023-06-02] MEDS: diphenhydrAMINE HCl INJ 50 MG/ML VIAL 25 MG IV PUSH (15:54)
[2023-06-02] MEDS: SODIUM CHLORIDE 0.9% IV 1,000 ML 999 ML IV CONT (15:54)
[2023-06-02] MEDS: PROCHLORPERAZINE EDISYLATE 10 MG/2 ML VIAL IV PUSH (15:55)
--- NOTE | 2023-06-02 16:12 | ED.ABDPAIN ---
HPI - Abdominal Pain General Chief Complaint: Abdominal Pain Stated Complaint: abdominal pain Time Seen by Provider: 06/02/23 14:43 History of Present Illness HPI narrative: 38-year-old male presented emergency department for evaluation of headache for the last few weeks. Patient is currently being treated for diverticulitis with Cipro and Flagyl. Patient started the antibiotics on Friday. This was started empirically. Patient states he has had some nausea vomiting and diarrhea but denies any blood in the stool. Patient reports he is also had a headache for the last few weeks. Patient states he has had some sinus congestion with this. Related Data Home Medications Medication Instructions Recorded Confirmed epinephrine 0.3 mg/0.3 mL 0.3 mg PRN PRN Anaphylaxis 10/17/22 05/23/23 injection, auto-injector (EpiPen 2-Aly) Allergies Allergy/AdvReac Type Severity Reaction Status Date / Time No Known Allergies Allergy Verified 05/23/23 10:57 Review of Systems Review of Systems: All systems reviewed & are unremarkable except as noted in HPI and below PMFSH Past Medical History Medical History Colon cancer screening Diverticulitis Dysphagia Epigastric abdominal pain IBS (irritable bowel syndrome) Left inguinal hernia Nausea Surgical History Surgical History History of appendectomy Family History Family History Mother Diabetes mellitus Heart disease Father Heart disease Social History Social History Smoking packs per day: 1 Smoking cigarettes per day: 20.0 Years smoked: 10 Smoking pack-years: 10.00 Smoking status: Current every day smoker Tobacco type: cigarettes Alcohol intake: current Substance use: never Substance use type: does not use Lack of Food: Never True Current Housing: I Have Housing Concerned About Future Housing: No Difficulty Paying Gas/Electric Bills: No Difficulty Paying for Meds: No Currently Unemployed: No Education: High School Diploma/GED Difficulty w/ Childcare or Family Care: No Living arrangements: alone Spiritual care concerns: No Exam Narrative: APPEARANCE: Well appearing, no pain, no distress, well-nourished. HEAD: normocephalic, atraumatic. EYES: PERRLA/EOMI, conjunctivae clear. NOSE: Normal no drainage EARS:TMS clear with good light reflex. THROAT: Pharynx clear, no exudate. NECK: Supple. No adenopathy, no masses. RESPIRATORY: Airway patent, respirations nonlabored. Clear to auscultation bilaterally, no rales, rhonchi, wheezing. CARDIOVASCULAR: Regular rate and rhythm without murmurs rubs or gallops. ABDOMINAL: Soft, nontender, nondistended, normal bowel sounds MUSCULOSKELETAL: Moves all extremities. Strength/ROM intact, No edema, No calf tenderness. NEURO: Alert. Cranial nerves II through XII intact. Grossly intact SKIN: Warm, dry. Normal Color Course Course Emergency Course: 38-year-old male presenting to the emergency department for evaluation of headache and abdominal pain. Patient reports that his headache was resolved with treatment. Patient had a negative head CT and his abdominal CT showed no abscess or perforation. Patient was afebrile with no leukocytosis and a stable hemoglobin. Patient CMP had no significant abnormalities. UA showed no evidence of infection. Patient reports he does feel improved with treatment. Patient was updated on results of his work-up. All questions and concerns were addressed and patient was comfortable to plan for discharge and close follow-up. Vital Signs Vital signs: Vital Signs Temperature 98 F 06/02/23 12:28 Pulse Rate 80 06/02/23 12:28 Respiratory Rate 19 06/02/23 12:28 Blood Pressure 132/79 06/02/23 12:28 Pulse Oximetry 100 0
[2023-06-02] MEDS: KETOROLAC 15 MG/ML VIAL (*BKC) IV PUSH (17:33)
== END 2023-06-02 18:20 | disposition home or self-care (01) ==
PROVIDERS: Emergency Provider Emergency Medicine; PCP Family Medicine
DX: R51.9 Headache, unspecified (principal); R10.9 Unspecified abdominal pain; F17.210 Nicotine dependence, cigarettes, uncomplicated
CPT/HCPCS: 36415; 70450; 74177; 80053; 81003; 83690; 85025; 96361; 96374; 96375; 99284; J0780; J1200; J1885; J7030; Q9967

== ENCOUNTER 2023-08-11 19:21 | Emergency (ER) | payer OTHER, SELFPAY ==
--- NOTE | ~2023-08-11 | CT_ITS ---
EXAMINATION: CT abdomen pelvis w con INDICATION: Bilateral flank pain TECHNIQUE: Computed tomographic images of the abdomen and pelvis were obtained after the administrati on of 100 cc of Omnipaque 350 intravenous contrast. The dose-length product (DLP) was 401.01 mGy-cm. Automated exposure control and iterative reconstruction technique were employed. COMPARISON: 06/02/2023 FINDINGS: Minimal dependent atelectasis is present in the lung bases. The heart size is normal. The l iver, spleen, pancreas, gallbladder, and adrenal glands are normal. The kidneys are unremarkable. No pathologically enlarged abdominal or pelvic lymph nodes are identified. No free intraperitoneal gas o r evidence of bowel obstruction. There is a small left inguinal hernia containing fat. There is moder ate lumbar spondylosis at L5-S1. A tiny umbilical hernia containing fat is noted. IMPRESSION: 1. No CT correlate for the patient's symptoms. Reviewed, dictated and finalized at location F. [facility] [employer]
[2023-08-11 19:38] VITALS: BP 150/95; PULSE 85; RESP 16; TEMP 36.4; O2SAT 98
--- NOTE | 2023-08-11 19:42 | ED.ABDPAIN ---
HPI - Abdominal Pain General Chief Complaint: Abdominal Pain Stated Complaint: abdominal pain X2 days Time Seen by Provider: 08/11/23 19:41 History of Present Illness HPI narrative: Patient presents the emergency department from home. He has had persistent left upper abdominal pain for weeks. Worse recently. Had a slight ?stomach virus? cause a lot of diarrhea. After that his stools were pale. He denies nausea vomiting. Pain comes in waves and is worse with eating. He has a history of appendectomy but still has gallbladder. Denies fevers and chills. Appetite has been normal. Patient has a history of diverticulitis with a perforation. Normally takes pantoprazole but was out until today Related Data Home Medications Medication Instructions Recorded Confirmed epinephrine 0.3 mg/0.3 mL 0.3 mg PRN PRN Anaphylaxis 10/17/22 05/23/23 injection, auto-injector (EpiPen 2-Aly) Allergies Allergy/AdvReac Type Severity Reaction Status Date / Time No Known Allergies Allergy Verified 08/11/23 19:22 Review of Systems Review of Systems: Negative except for what is documented in the HPI [facility] Past Medical History Medical History Colon cancer screening Diverticulitis Dysphagia Epigastric abdominal pain IBS (irritable bowel syndrome) Left inguinal hernia Nausea Surgical History Surgical History History of appendectomy Family History Family History Mother Diabetes mellitus Heart disease Father Heart disease Social History Social History Smoking packs per day: 1 Smoking cigarettes per day: 20.0 Years smoked: 10 Smoking pack-years: 10.00 Smoking status: Current every day smoker Tobacco type: cigarettes Alcohol intake: current Substance use: never Substance use type: does not use Lack of Food: Never True Current Housing: I Have Housing Concerned About Future Housing: No Difficulty Paying Gas/Electric Bills: No Difficulty Paying for Meds: No Currently Unemployed: No Education: High School Diploma/GED Difficulty w/ Childcare or Family Care: No Living arrangements: alone Spiritual care concerns: No Exam Narrative: GENERAL: Well-appearing, well-nourished, and in no acute distress. HEAD: Normocephalic, atraumatic. EYES: PERRLA and EOMI. ENT: Nares clear, no rhinorrhea or epistaxis. Mucous membranes moist. NECK: Supple. CHEST: Clear to auscultation. No respiratory distress. HEART: Regular rate and rhythm. ABDOMEN: Soft, nontender, nondistended. EXTREMITIES: Normal range of motion. No edema. SKIN: Warm, dry, no rash. NEURO: No focal deficits. Alert and oriented x3. PSYCH: Normal mood and affect. Course Course Emergency Course: Differential diagnosis includes but not limited to acute cholecystitis, choledocholithiasis, cholelithiasis, pancreatitis, diverticulitis Vital Signs Vital signs: Vital Signs Temperature 36.4 C 08/11/23 19:38 Pulse Rate 85 08/11/23 19:38 Respiratory Rate 16 08/11/23 19:38 Blood Pressure 150/95 H 08/11/23 19:38 Pulse Oximetry 98 08/11/23 19:38 Oxygen Delivery Room Air 08/11/23 19:38 Temperature 36.4 C 08/11/23 19:38 Pulse Rate 85 08/11/23 19:38 Respiratory Rate 16 08/11/23 19:38 Blood Pressure 120/85 08/11/23 20:46 Pulse Oximetry 98 08/11/23 20:46 Oxygen Delivery Room Air 08/11/23 19:38 MDM - Abdominal Pain MDM Narrative Medical decision making narrative: Labs grossly unremarkable. CT scan pending 22:25p CT scan negative for any acute pathology. Patient has had pain for a while, will DC and referred to GI. Lab Data 08/11/23 19:48 08/11/23 19:48 Labs: Lab Results 08/11/23 08/11/23 Range/Units 19:48 19:52
[2023-08-11] MEDS: DICYCLOMINE HCL 10 MG CAPSULE PO (19:52)
[2023-08-11 19:55] LABS: Basophils Percent Auto 0.4 % (0.2-1.2); Eosinophils Absolute Auto 0.1 K/mm3 (0-0.3); Eosinophils Percent Auto 0.5 % (0-4.4); Hematocrit 47.8 % (42.0-52.0); Hemoglobin 16.1 g/dL (14.0-18.0); Immature Granulocyte Absolute 0.03 K/mm3 (0.00-0.031); Immature Granulocyte Percent A 0.3 % (0-0.5); Lymphocytes Absolute Auto 2.26 K/mm3 (0.9-3.2); Lymphocytes Percent Auto 24.5 % (18.3-44.2); Mean Corpuscular HGB Conc 33.7 g/dl (32-36); Mean Corpuscular Hemoglobin 29.9 pg (26-34); Mean Corpuscular Volume 88.8 fl (80-100); Mean Platelet Volume 10.1 fl (7.4-10.4); Monocytes Absolute Auto 0.6 K/mm3 (0.1-0.6); Monocytes Percent Auto 6.3 % (2.6-8.5); Neutrophils Absolute Auto 6.3 K/mm3 (1.3-6.7); Platelet Count Result 292 k/mm3 (150-375); Red Blood Count 5.38 M/mm3 (4.6-6.20); Red Cell Distribution Width 12.5 % (11.5-14.5); White Blood Count 9.2 K/mm3 (4.5-10.0)
[2023-08-11 20:08] LABS: Lactic Acid Reflex 0.8 mmol/L (0.7-2.0)
[2023-08-11 20:10] LABS: Appearance Urine Clear (Clear); Bilirubin Urine Negative (Negative); Blood Urine Negative (Negative); Color Urine Yellow (Yellow); Glucose Urine UA Negative (Negative); Ketones Urine Negative (Negative); Leukocyte Esterase Ur Negative LEU/UL (Negative); Nitrate Urine Negative (Negative); Protein Urine Negative (Negative); Specific Grav Ur 1.003 (1.001-1.035); Urobilinogen Urine 0.2 mg/dL (<2.0); pH Urine 6.5 (5.0-9.0)
[2023-08-11 20:16] LABS: Add Urine Microscopic? NO
[2023-08-11 20:34] LABS: Alanine Aminotransferase 42 U/L (6-50); Albumin Level 4.9 g/dL (3.5-5.1); Alkaline Phosphatase 58 U/L (38-126); Anion Gap 12 mmol/L (8-16); Aspartate Amino Transferase 27 U/L (17-59); Bilirubin,Total 0.6 mg/dL (0.2-1.3); Blood Urea Nitrogen 10 mg/dL (9-20); Calcium 10.5 mg/dL (8.4-10.2); Carbon Dioxide 25 mmol/L (22-30); Chloride 104 mmol/L (98-107); Estimated CRCL calculation 104 ml/min; Estimated Glomerular Filt Rate > 60; Glucose 97 mg/dL (65-110); Lipase 99 U/L (23-300); Potassium 3.9 mmol/L (3.4-5.0); Sodium 141 mmol/L (137-145)
[2023-08-11 20:45] VITALS: O2SAT 99
[2023-08-11 20:46] VITALS: BP 120/85; O2SAT 98
[2023-08-11 22:44] VITALS: BP 143/96; PULSE 72; RESP 16; O2SAT 99
== END 2023-08-11 22:44 | disposition home or self-care (01) ==
PROVIDERS: Emergency Provider Emergency Medicine; PCP Family Medicine
DX: K58.9 Irritable bowel syndrome, unspecified (principal); R10.12 Left upper quadrant pain
CPT/HCPCS: 36415; 74177; 80053; 81003; 83605; 83690; 85025; 99284; A9270; Q9967

== ENCOUNTER 2024-01-28 08:00 | Emergency (ER) | payer OTHER, SELFPAY ==
--- NOTE | 2024-02-11 08:50 | ED_ITS ---
HPI - General Adult Related Data Home Medications Medication Instructions Recorded Confirmed epinephrine 0.3 mg/0.3 mL 0.3 mg PRN PRN Anaphylaxis 10/17/22 01/13/24 injection, auto-injector (EpiPen 2-Aly) Allergies Allergy/AdvReac Type Severity Reaction Status Date / Time No Known Allergies Allergy Verified 01/13/24 11:00 [facility] Past Medical History Medical History (Updated 02/15/24 @ 21:44 by Dianelys Overton APRN) Colon cancer screening Diverticulitis Dysphagia Epigastric abdominal pain IBS (irritable bowel syndrome) Left inguinal hernia Nausea Surgical History Surgical History History of appendectomy Family History Family History Mother Diabetes mellitus Heart disease Father Heart disease Social History Social History Smoking packs per day: 1 Smoking cigarettes per day: 20.0 Years smoked: 10 Smoking pack-years: 10.00 Smoking status: Current every day smoker Tobacco type: cigarettes Alcohol intake: current Substance use: never Substance use type: does not use Lack of Food: Never True Current Housing: I Have Housing Concerned About Future Housing: No Difficulty Paying Gas/Electric Bills: No Difficulty Paying for Meds: No Currently Unemployed: No Education: High School Diploma/GED Difficulty w/ Childcare or Family Care: No Living arrangements: alone Spiritual care concerns: No Course Course Level of Care: Express Care Visit Discharge Plan Discharge Clinical Impression: Otitis media Patient Disposition: Home, Self-Care Condition: Stable Prescriptions: No Action pantoprazole 40 mg tablet,delayed release (DR/EC) 40 mg PO QAM Qty: 90 3RF epinephrine [EpiPen 2-Aly] 0.3 mg/0.3 mL auto-injector 0.3 mg PRN PRN (Reason: Anaphylaxis)
== END 2024-01-28 15:23 | disposition home or self-care (01) ==
LOC: EXPTROY 15:23
PROVIDERS: Emergency Provider Nurse Practitioner Family; PCP Family Medicine
DX: H66.93 Otitis media, unspecified, bilateral (principal); F17.210 Nicotine dependence, cigarettes, uncomplicated
CPT/HCPCS: 99211; G0463

== ENCOUNTER 2024-12-02 11:08 | Emergency (ER) | payer OTHER, SELFPAY ==
[2024-12-02 11:17] VITALS: BP 137/87; PULSE 77; RESP 18; TEMP 36.3; O2SAT 98
--- NOTE | 2024-12-02 11:20 | ED_ITS ---
HPI - Ear Problem General Chief complaint: Eye Problems Stated complaint: LT Ear and Eye Pain Time Seen by Provider: 12/02/24 11:20 Source: patient Mode of arrival: ambulatory Limitations: no limitations History of Present Illness HPI Narrative: 39-year-old male presents with complaint of left ear pain for 4-5 days. Afebrile. Patient reports that he had congestion and coughing over a week ago that had resolved. Continues to have some postnasal drainage. Patient reports yesterday he had a piece of paper in his hand and hit it against his eye. Since then has had left eye pain redness and clear drainage. Does not wear contacts. She wears eyeglasses as needed. No vision changes Since injury. All systems reviewed and negative except as noted above. Related Data Allergies Allergy/AdvReac Type Severity Reaction Status Date / Time No Known Allergies Allergy Verified 12/02/24 11:21 Review of Systems Review of Systems: CONSTITUTIONAL: Denies fever, chills, or sweats. EYES: Denies visual changes Reports left eye redness, clear discharge, pain and light sensitivity. ENT: Denies rhinorrhea, congestion, sore throat. Reports left ear pain. CARDIOVASCULAR: Denies chest pain, palpitations, or edema. RESPIRATORY: Denies cough or dyspnea. GASTROINTESTINAL: Denies abdominal pain, nausea, vomiting, or diarrhea. GENITOURINARY: Denies dysuria or hematuria. SKIN: Denies rash or itching. MUSCULOSKELETAL: Denies back pain, joint pain, or myalgia. NEUROLOGIC: Denies headache, numbness, or weakness. PSYCHIATRIC: Denies anxiety or depression. All other systems reviewed are negative, except as documented in HPI. [facility] Past Medical History Medical History Colon cancer screening Diverticulitis Dysphagia Epigastric abdominal pain IBS (irritable bowel syndrome) Left inguinal hernia Nausea Surgical History Surgical History History of appendectomy Family History Family History Mother Diabetes mellitus Heart disease Father Heart disease Social History Social History Smoking packs per day: 1 Smoking cigarettes per day: 20.0 Years smoked: 10 Smoking pack-years: 10.00 Smoking status: Current every day smoker Tobacco type: e-cigarettes/vaping Alcohol intake: current Substance use: never Substance use type: does not use Lack of Food: Never True Current Housing: I Have Housing Concerned About Future Housing: No Difficulty Paying Gas/Electric Bills: No Difficulty Paying for Meds: No Currently Unemployed: No Education: High School Diploma/GED Difficulty w/ Childcare or Family Care: No Living arrangements: alone Spiritual care concerns: No Comments At time of signature, agree with nursing past medical, surgical, social and family history. There is no relevant family history pertinent to the presenting complaint. Exam Narrative: GENERAL: This is a well-nourished, well-developed patient, in no apparent distress. HEAD: normocephalic, atraumatic. EYES: PERRL. Left Sclera erythematous with clear drainage. Right eye normal. Topical anesthetic was instilled with good anesthesia using 1gtt of opth anesthetic agent (tetracaine). Fluorescein stain of the L eye was performed. small corneal abrasion noted to left eye at 9 oclock. NO FB, ulcer or dendritic lesions. Upper lid was everted and no FB or lesions were noted. Normal saline irrigation eye solution was performed and the patient tolerated the procedure well, no adverse reaction or complications. EARS: External ears normal, auditory canals clear and without drainage, right TM normal. Left TM is erythematous with fluid. No perforation bilaterally. NOSE: External nose normal THROAT: Mucous membranes moist, posterior pharynx clear. NECK: Neck supple, non-tender without lymphadenopathy, masses or thyromegaly. CARDIOVASCULAR: Regular rate and rhythm without murmurs, gallops, or rubs. RESPIRATORY: Clear to auscultation. Breath sounds equal bilaterally. No wheezes, rales, or rhonchi. SKIN: warm, Dry, intact with no suspicious lesions or rash, good texture and turgor. NEURO: awake, alert, and oriented to person, place and time. There were no obvious focal neurologic abnormalities. EXTREMITIES: No joint tenderness, effusion, or edema noted. Course Course Level of Care: Express Care Visit Vital Signs Vital signs: Vital Signs Temperature 36.3 C L 12/02/24 11:17 Pulse Rate 77 12/02/24 11:17 Respiratory Rate 18 12/02/24 11:17 Blood Pressure 137/87 12/02/24 11:17 Pulse Oximetry 98 12/02/24 11:17 Oxygen Delivery Room Air 12/02/24 11:17 Temperature 36.3 C L 12/02/24 11:17 Pulse Rate 77 12/02/24 11:17 Respiratory Rate 18 12/02/24 11:17 Blood Pressure 137/87 12/02/24 11:17 Pulse Oximetry 98 12/02/24 11:17 Oxygen Delivery Room Air 12/02/24 11:17 Reviewed Medical Decision Making MDM Narrative Medical decision making narrative: corneal abrasion to left eye. Will treat with ofloxacin. Patient does not were contacts. Denies vision changes. Will treat left serous otitis with amoxicillin. Recommend follow-up with primary care physician as needed. Please be advised this is a medical document. It is intended for [id number] communication. It is written in medical language and may contain unfamiliar abbreviations or verbiage. Medical documents are intended to carry relevant information, facts as evident, and the clinical opinion of the practitioner at the time of the encounter. This report may have been done utilizing a voice recognition system. Attempts have been made to correct errors. However, there may be uncorrected grammatical, spelling, and recognition errors present. The file time of this note does not necessarily represent the time of service. Vital Signs Vital Signs: Vital Signs Temperature 36.3 C L 12/02/24 11:17 Pulse Rate 77 12/02/24 11:17 Respiratory Rate 18 12/02/24 11:17 Blood Pressure 137/87 12/02/24 11:17 Pulse Oximetry 98 12/02/24 11:17 Oxygen Delivery Room Air 12/02/24 11:17 Temperature 36.3 C L 12/02/24 11:17 Pulse Rate 77 12/02/24 11:17 Respiratory Rate 18 12/02/24 11:17 Blood Pressure 137/87 12/02/24 11:17 Pulse Oximetry 98 12/02/24 11:17 Oxygen Delivery Room Air 12/02/24 11:17 Discharge Plan Discharge Clinical Impression: Abrasion of cornea, left Qualifiers: Encounter type: initial encounter Qualified Code(s): S05.02XA - Injury of conjunctiva and corneal abrasion without foreign body, left eye, initial encounter Acute serous otitis media, left ear Qualifiers: Recurrence: not specified as recurrent Qualified Code(s): H65.02 - Acute serous otitis media, left ear Patient Disposition: Home, Self-Care Condition: Stable Instructions: Antibiotic Form, Corneal Abrasion (ED), Fluid In The Ear (Serous Otitis Media) (ED) Additional Instructions: take medications as prescribed. Purchase [id number] Claritin D and take as directed on packaging. This medication is found behind the pharmacy counter. Take ibuprofen or Tylenol every 6-8 hours as needed for pain. See your doctor if symptoms are not improving. Patient Language: Arabic Prescriptions: New amoxicillin 875 mg tablet 875 mg PO Q12H 10 Days Qty: 20 0RF ofloxacin 0.3 % drops See Rx Instructions .ROUTE .COMPLEX Qty: 10 0RF Rx Instructions: put 1-2 drps into affected eye(s) every 2-4 h x 2 days, then 1-2 drps 4 times/day days 3-7 No Action pantoprazole 40 mg tablet,delayed release (DR/EC) 40 mg PO QAM Qty: 90 3RF epinephrine [EpiPen 2-Aly] 0.3 mg/0.3 mL auto-injector 0.3 mg IM PRN PRN (Reason: Anaphylaxis) Qty: 2 0RF Follow-up/Referrals: Marleni Mosley DO [Primary Care Provider] - Time of Disposition: 11:34
[2024-12-02] MEDS: DACRIOSE EYE IRRIGATION 118 ML BOTTLE LEFT EYE (11:34)
[2024-12-02] MEDS: TETRACAINE HCL 0.5% OPHTH SOLN 4 ML BTL 2 DROP LEFT EYE (11:36)
[2024-12-02] MEDS: FLUORESCEIN SOD 1 MG/STRIP LEFT EYE (11:37)
--- OUTSIDE RECORDS SUMMARY | 2024-12-02 13:02 | XMS_ITS | Encounter Summary ---
Author Organization [facility] Address [facility] [place] [address] Care Team Providers Care Technician Automated Equipment Name Role Phone Ajith Parra MD Primary Care Provider [phone] Nay Alfonso MD Primary Care Provider [phone] Marleni Mosley DO Primary Care Provider [phone] Encounter Details Date Type Department Care Team (Late st Contact Info) Description 04/21/2013 Abstract [facility] CONVERSION [address] [place] [address] , Generic MD Kristina Social History Tobacco Use Types Packs/Day Years Used Date Smoking Tobacco: Never Assessed Sex and Gender Information Value Date Recorded Sex Assigned at Not on file Legal Sex Male 8:21 PM CDT Gender Identity Not on file Sexual Orientation Not on file documented as of this encounter Plan of Treatment Not on file documented as of this encounter Visit Diagnoses Not on filedocumented in this encounter Additional Health Concerns Infection Onset Date Last Indicated Resolved Time COVID-19 Rule Out 08/16/2022 08/16/2022 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
--- OUTSIDE RECORDS SUMMARY | 2024-12-02 13:02 | XMS_ITS ---
Author Organization [facility] Address [address] [place] [address] Care Team Providers Care Supervisor Curing Room Name Role Phone Marleni Mosley Primary Care Provider Unavailabl e Liliya Fatima Unavailable [phone] [facility], Provider Unavailable Unavailab le REASON FOR VISIT [facility] Encounter Medications Medication SIG (Take, Route, Frequency, Duration) Notes Start Date End Date Status Cetirizine HCl 10 MG 1 tab(s) orally once a day 10/15/2022 Active Famotidine 40 MG 1 tab(s) orally once a day (at bedtime) 10/15/2022 Active EpiPen 2-Aly *Please review a nd pick correct strength-formulation from [facility] options. If intended option is not shown, discontinue and re-order from Quick Search* Active Encounters Encounter Location Date Provider Diagnosis [facility] [address] [place] [address] 03/06/2024 Provider ZZ-Migration Anaphylactic reaction due to adverse effect of correct drug or medicament properly administered, initial encounter T88.6XXA Assessments Encounter Date Diagnosis (ICD Code) Assessment Notes Treatment Notes Treatment Clinical Notes Section Notes 03/06/2024 Anaphylactic reaction due to adverse effect of correct drug or medicament properly administered, initial encounter (ICD-10 - T88.6XXA) Plan Of Treatment Medication Medication Name Sig Start Date Stop Date Notes Cetirizine HCl 10 MG 1 tab(s) orally once a day 10/15/2022 Famotidine 40 MG 1 tab(s) orally once a day (at bedtime) 10/15/2022 Progress Notes * DAVIDFransiscoDOB: 4 (39 yo M)Acc No.[id number]:03/06/2024 Patient: Fransisco JOHNSON Provider: Magdy Sharif :1985 A ge:38 Y S ex:Male Date:03/06/2024 [facility] Pcp:Marleni Mosley Subjective: * Chief Complaints: * 1 . Multum To [facility] Conversion Encounter. * Medical History: * Medications: T aking EpiPen 2-Aly , Notes to Pharmacist: *Please review and pick correct strength-formulation from [facility] options. If intended option is not shown, discontinue and re-order from Quick Search* Objective: * Vitals: Assessment: * Assessment: 1. A naphylactic reaction due to adverse effect of correct drug or medicament properly administered, initial encounter - T88.6XXA (Primary) Plan: * Treatment: * Billing Information: * Visit Code: * Procedure Codes: * Electronic signature of Prov efrainr ZZ-Migration on 12/02/2024 at 01:02 PM CDT Sign off status: Pending * Provider: Magdy Sharif Date: 0 03/06/2024 Generated for John pham/Ronald/Alexanderitting on: 0 12/02/2024 01:02 PM CDT
--- OUTSIDE RECORDS SUMMARY | 2024-12-02 13:02 | XMS_ITS | Patient Health Summary ---
Author Organization [facility] Address [address] [place] [address] Care Team Providers Care Clerical Support Name Role Phone Darwin Melara MD Unavailable [phone] Note from [facility],non-owned Affiliates and Associated Physician Practices is amultiple site organization consisting of ambulatory clinics and hospital sitesin [place], [place], [place] and [place]. This disclosure is being madepursuant to the Care Everywhere program and may not contain all information available regarding this patient. Last updated 18.[facility] Allergies No known active allergies Medications * Be aware that medications may not be up to date on this document. Alwaysverify current medications with the patient. * promethazine (PHENERGAN) 25 MG tablet q 6 hr * valACYclovir (VALTREX) 1 GM tablet * hydrocodone-acetaminophen (NORCO) 10-325 MG tablet q 8 prn * diclofenac sodium (VOLTAREN) 75 MG tablet TBEC(Started 02/24/2013) Take 1 Tab by mouth 2 times daily. 3 refills left Active Problems Problem Noted Date Diagnosed Date Degeneration of lumbar or lumbosacral interverte bral disc 02/25/2013 Herpes simplex 02/24/2013 Low back pain 02/24/2013 Social History Tobacco Use Types Packs/Day Years Used Date Smoking Tobacco: Former Smokeless Tobacco: Never Alcohol Use Standard Drinks/Week Comments Not Asked 0 (1 standard drink = 0.6 oz pur e alcohol) Sex and Gender Information Value Date Recorded Sex Assigned at Not on file Gender Identity Not on file Sexual Orientation Not on file Last Filed Vital Signs Vital Sign Reading Time Taken Comments Blood Pressure 115/84 02/24/2013 11:19 AM CDT Pulse 91 02/24/2013 11:19 AM CDT Temperature - - Respiratory Rate 16 02/24/2013 11:19 AM CDT Oxygen Saturation - - Inhaled Oxygen Concentration - - Weight 73.5 kg (162 lb) 02/24/2013 11:19 AM CDT Height 175.3 cm (5' 9 ) 02/24/2013 11:19 AM CDT Body Mass Index 23.92 02/24/2013 11:19 AM CDT Procedures * MRI LUMBAR SPINE WO CONTRAST(Performed 02/09/2013) Results * MRI SPINE LUMBAR NON CONTRAST (02/09/2013) Anatomical Region Laterality Modality Spine Other Darwin Melara MD MR ORDERABLES Care Teams Clerical Support Relationship Specialty Start Date End Date Darwin Melara MD Neurological Surgery 02/24/13
--- OUTSIDE RECORDS SUMMARY | 2024-12-02 13:02 | XMS_ITS | Patient Health Record ---
Author Organization [facility] Address [address] [place] [address] Care Team Providers Care Behavioral Assistant Name Role Phone Marleni Mosley Primary Care Provider UnavailLiliya Gomez Unavailable [phone] Z[facility]-Migration, Provider Unavailable Unavailab le Allergies No Known Allergies Reason For Referral No Information Medications Medication SIG (Take, Route, Frequency, Duration) Notes Start Date End Date Status FAMOTIDINE 40 mg 1 tab(s) orally once a day (at bedtime) 10/15/2022 Active CETIRIZINE HYDROCHLORIDE 10 mg 1 tab(s) orally once a day 10/15/2022 Active EPIPEN 2-ALY Active Cetirizine HCl 10 MG 1 tab(s) orally once a day 10/15/2022 Active Famotidine 40 MG 1 tab(s) orally once a day (at bedtime) 10/15/2022 Active EpiPen 2-Aly *Please review a nd pick correct strength-formulatio n from [facility] options. If intended option is not shown, discontinue and re-order from Quick Search* Active Social History Tobacco Use: Social History Observation Description Date Details (start date - stop date) Former Smoker NA - 09/24/2011 Smoking Smart Form: Question Answer Notes Are you a: former smoker When did you stop smoking? 09/24/2011 Problems Problem Type SNOMED Code ICD Code Onset Dates Problem Status W/U Status Risk Notes Problem Common cold (47324293) Acute nasopharyngitis [common cold] (J00) Active confirmed Problem Drug-induced anaphylaxis (disorder) (560060617) Anaphylactic reaction due to adverse effect of correct drug or medicament properly administered, initial encounter (T88.6XXA) Active confirmed Problem Chronic rhinitis (30456670) Chronic rhinitis (J31.0) Active confirmed Encounters Encounter Location Date Provider Diagnosis [facility] [address] [place] [address] 03/06/2024 Provider Alexa Anaphylactic reaction due to adverse effect of correct drug or medicament properly administered, initial encounter T88.6XXA Assessments Encounter Date Diagnosis (ICD Code) Assessment Notes Treatment Notes Treatment Clinical Notes Section Notes 03/06/2024 Anaphylactic reaction due to adverse effect of correct drug or medicament properly administered, initial encounter (ICD-10 - T88.6XXA) Plan Of Treatment No Information Insurance Providers Payer Name Payer Address Payer Phone Subscriber Number Group Number Insured Name Patient Relationship to Insured Coverage Start Date Coverage End Date [facility] [address] [place] [phone] [id number] Fransisco Yoon Self - patient is the insured Medical (General) History Medical History History ICD Code Diverticulitis Surgical History Surgery Date(Month/Year) Appendectomy 2019 Hospitalization History Reason Date(Month/Year) Appendectomy
--- OUTSIDE RECORDS SUMMARY | 2024-12-02 13:02 | XMS_ITS | Referral Summary ---
Author Organization [facility] Address [address] [place] [address] Care Team Providers Care It Software Engineer Name Role Phone Darwin Melara MD Unavailable [phone] Source Comments [facility] [employer],non-owned Affiliates and Associated Physician Practices is amultiple site organization consisting of ambulatory clinics and hospital sitesin [place], [place], [place] and [place]. This disclosure is being madepursuant to the Care Everywhere program and may not contain all information available regarding this patient. Last updated 18.[facility] [employer] Allergies No known active allergies Medications * Be aware that medications may not be up to date on this document. Alwaysverify current medications with the patient. Medication Sig Dispensed Refills Start Date End Date Status promethazine (PHENERGAN) 25 MG tablet q 6 hr Active valACYclovir (VALTREX) 1 GM tablet Active hydrocodone-acetaminoph en (NORCO) 10-325 MG tablet q 8 prn Active diclofenac sodium (VOLTAREN) 75 MG tablet TBEC Take 1 Tab by mouth 2 times daily. 60 Tab 3 02/24/2013 Active Active Problems Problem Noted Date Diagnosed Date [...] Mass Index 23.92 02/24/2013 11:19 AM CDT Plan of Treatment Not on file Care Teams It Software Engineer Relationship Specialty Start Date End Date Darwin Melara MD Neurological Surgery 02/24/13
--- OUTSIDE RECORDS SUMMARY | 2024-12-02 13:02 | XMS_ITS | Encounter Summary ---
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
--- OUTSIDE RECORDS SUMMARY | 2024-12-02 13:02 | XMS_ITS | Clinical Summary ---
Author Organization 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 Gender Identity Not on file Sexual Orientation Not on file Plan of Treatment Health Maintenance Due Date Last Done Comments Hepatitis C Virus (HCV) Screening 1985 TdaP Immunization 1985 Hepatitis B Immunization (1 of 3 - 19+ 3-dose series) 2003 Influenza Immunization (#1) 2024 SARS-COV-2 Immunization ( - season) 2024 Respiratory Syncytial Virus (RSV) Immunization (Adult) (1 - 1-dose 75+ series) 2059 Meningococcal Immunization (ACWY) Aged Out No longer eligible based on patient's age to complete this topic Pneumococcal Immunization Combined Aged Out No longer eligible based on patient's age to complete this topic Rotavirus Immunization Aged Out No lo nger eligible based on patient's age to complete this topic
--- OUTSIDE RECORDS SUMMARY | 2024-12-02 13:02 | XMS_ITS | Clinical Summary ---
Author Organization [facility] Address [address] [place] [address] Care Team Providers Care Director Of Hemophilia Name Role Phone Marleni Mosley DO Primary Care Provider [phone] Allergies Active Allergy Reactions Criticality Noted Date Comments Hydromorphone Other (see comment) High 03/03/2013 Patient became violent Venlafaxine Other (see comment) High 05/19/2013 Patient became violent Medications psyllium (KONSYL) 100 % Pack Take 1 packet by mouth daily. May substitute with any fiber supplement 30 packet 2 Active ondansetron (ZOFRAN-ODT) 4 MG disintegrating tablet Take 1 tablet (4 mg total) by mouth every 8 (eight) hours as needed for Nausea. 20 tablet 2 Active Active Problems Problem Noted Date Diagnosed Date Chronic pain syndrome 05/12/2019 Adverse effects in the thera peutic use of other analgesics and antipyretics 05/19/2013 Muscle spasm of back 05/19/2013 Anxiety disorder 04/07/2013 Degeneration of lumbar or lumbosacral interverte bral disc 02/25/2013 Herpes simplex 02/24/2013 Low back pain 02/24/2013 Dental caries extending into dentin 12/07/2012 Periodontal abscess 12/07/2012 Arthralgia of temporomandibular joint 11/27/2012 Attention deficit hyperactivity disorder (ADHD) 11/27/2012 Dyslipidemia 11/27/2012 Nicotine dependence 11/27/2012 Spondylolisthesis of lumbar region 11/27/2012 Joint stiffness of multiple sites 10/30/2012 Muscular aches 10/30/2012 Family History Medical History Relation Comments None Father DJD Mother Relation Status Comments Father Alive Mother Alive Social History Tobacco Use Types Packs/Day Years Used Date Smoking Tobacco: Former Cigarettes Q uit: 2013 Smokeless Tobacco: Never Tobacco Cessation:Counseling Given: No Alcohol Use Standard Drinks/Week Comments No 0 (1 standard drink = 0.6 oz pur e alcohol) AUDIT-C Answer Date Recorded Frequency of Alcohol Consumption Never 04/28/2019 Average Number of Drinks Not on file 019 Frequency of Binge Drinking Not on file 03/2019 PHQ-2 Answer Date Recorded PHQ-2 Score 2 08/29/2019 Sex and Gender Information Value Date Recorded Sex Assigned at Not on file Legal Sex Male 8:21 PM CDT Gender Identity Not on file Sexual Orientation Not on file Last Filed Vital Signs Vital Sign Reading Time Taken Comments Blood Pressure 124/83 09/23/2022 6:11 AM CUSTOMER RESOLUTION SPECIALIST Pulse 64 09/23/2022 6:11 AM CUSTOMER RESOLUTION SPECIALIST Temperature 36.4 C (97.5 F) 09/23/2022 3:08 AM CUSTOMER RESOLUTION SPECIALIST Respiratory Rate 16 09/23/2022 6:11 AM CUSTOMER RESOLUTION SPECIALIST Oxygen Saturation 100% 09/23/2022 6:11 AM CUSTOMER RESOLUTION SPECIALIST Inhaled Oxygen Concentration - - Weight 74.8 kg (165 lb) 09/23/2022 3:02 AM CUSTOMER RESOLUTION SPECIALIST Height 172.7 cm (5' 8 ) 09/23/2022 3:02 AM CUSTOMER RESOLUTION SPECIALIST Body Mass Index 25.09 09/23/2022 3:02 AM CUSTOMER RESOLUTION SPECIALIST Plan of Treatment Health Maintenance Due Date Last Done Comments Annual Physical 1987 Hepatitis C 2002 DTaP, Tdap and Td Vaccines ( 1 - Tdap) 2003 Hepatitis B Vaccines (1 of 3 - 19+ 3-dose series) 2003 COVID-19 Vaccine (2023-2 5 season) 2024 Influenza Adult (#1) 2024 HPV Vaccines Aged Out No longer eligi ble based on patient's age to complete this topic Meningococcal B Vaccine Aged Out No l onger eligible based on patient's age to complete this topic Meningococcal Vaccine Aged Out No amelia rob eligible based on patient's age to complete this topic Pneumococcal Vaccine: Pediat rics (0 to 5 Years) and At-Risk Patients (6 to 64 Years) Aged Out No longer eligible b ased on patient's age to complete this topic RSV Immunizations Under 20 Months Aged Out No longer eligible based on patient's age to complete this topic Insurance [facility] Care Teams Director Of Hemophilia Relationship Specialty Start Date End Date Marleni Mosley DO [address] [place] [address] PCP - General FAMILY PRACTICE 08/01/22
--- OUTSIDE RECORDS SUMMARY | 2024-12-02 13:02 | XMS_ITS | Clinical Summary ---
Author Organization [facility] Address [address] [address] Care Team Providers Care Mobile Heavy Equipment Operator Name Role Phone Darwin Melara MD Unavailable [phone] Source Comments [facility] [employer],non-owned Affiliates and Associated Physician Practices is amultiple site organization consisting of ambulatory clinics and hospital sitesin [place], [place], [place] and [place]. This disclosure is being madepursuant to the Care Everywhere program and may not contain all information available regarding this patient. Last updated 18.[facility] Allergies No known active allergies Medications * [...] Herpes simplex 02/24/2013 Low back pain 02/24/2013 Family History Medical History Relation Name Comments Hypercholesterolemia Brother Cancer - Ovarian Maternal Grandmother Diabetes Mother Relation Name Status Comments Brother Father Alive Maternal Grandmother Mother Alive Social History Tobacco Use Types [...] 02/24/2013 11:19 AM CDT Plan of Treatment Health Maintenance Due Date Last Done Comments LIPID TESTING 1985 HIV SCREENING 1999 HEPATITIS C SCREENING 03/16/2002 DTAP/TDAP/TD VACCINES (1 - Tdap) 2003 HEPATITIS B VACCINE (1 of 3 - 19+ 3-dose series) 2003 COVID-19 VACCINE (1 - 2023-2 5 season) 2024 INFLUENZA VACCINE (#1) 2024 DEPRESSION SCREENING 09/22/2024 ZOSTER VACCINE (1 of 2) 2034 HIB VACCINE Aged Out No longer eligi ble based on patient's age to complete this topic HPV VACCINE Aged Out No longer eligi ble based on patient's age to complete this topic MENINGOCOCCAL (Group B) VACC INE SHARED DECISION-MAKING Aged Out No longer eligibl e based on patient's age to complete this topic MENINGOCOCCAL GROUPS A/C/Y/W VACCINE Aged Out No longer eligible b ased on patient's age to complete this topic PNEUMOCOCCAL VACCINE Aged Out No long er eligible based on patient's age to complete this topic Care Teams Mobile Heavy Equipment Operator Relationship Specialty Start Date End Date Darwin Melara MD Neurological Surgery 02/24/13
== END 2024-12-02 11:40 | disposition home or self-care (01) ==
PROVIDERS: Emergency Provider Nurse Practitioner Family; PCP Family Medicine
DX: S05.02XA Injury of conjunctiva and corneal abrasion without foreign body, left eye, initial encounter (principal); H65.02 Acute serous otitis media, left ear; F17.210 Nicotine dependence, cigarettes, uncomplicated; W22.8XXA Striking against or struck by other objects, initial encounter
CPT/HCPCS: 99213; A9270; G0463

== ENCOUNTER 2025-08-08 15:24 | Emergency (ER) | payer OTHER, SELFPAY ==
[2025-08-08 15:30] VITALS: BP 123/77; PULSE 68; RESP 16; TEMP 37.1; O2SAT 97
--- NOTE | 2025-08-08 15:35 | ED.URI ---
HPI - URI/Sore Throat General Chief Complaint: Upper Respiratory Infection Stated Complaint: URI Source: patient and RN notes reviewed Mode of arrival: ambulatory Limitations: no limitations History of Present Illness HPI Narrative: Patient is a 40-year-old male who presents to the [facility] with complaints of nasal congestion and drainage, sore throat, chest congestion, and cough for the past 2 weeks. Patient endorses a frequent nonproductive cough. States that he is continued to have nasal congestion and drainage. Denies recent fevers. Denies chest pain or shortness of breath. Unsure of any known sick contacts. Related Data Allergies Allergy/AdvReac Type Severity Reaction Status Date / Time No Known Allergies Allergy Verified 08/08/25 15:30 Review of Systems Review of Systems: CONSTITUTIONAL: Denies fever, chills, or sweats. EYES: Denies visual changes, redness, or discharge. ENT: Denies otalgia but reports sore throat and congestion. CARDIOVASCULAR: Denies chest pain, palpitations, or edema. RESPIRATORY: Reports cough but denies dyspnea. GASTROINTESTINAL: Denies abdominal pain, nausea, vomiting, or diarrhea. GENITOURINARY: Denies dysuria or hematuria. SKIN: Denies rash or itching. MUSCULOSKELETAL: Denies back pain, joint pain, or myalgia. NEUROLOGIC: Denies headache, numbness, or weakness. Pertinent positives per HPI. [facility]LY [facility] Past Medical History Medical History Colon cancer screening IBS (irritable bowel syndrome) Dysphagia Nausea Epigastric abdominal pain Left inguinal hernia Diverticulitis Surgical History Surgical History History of appendectomy Family History Family History Mother Diabetes mellitus Heart disease Father Heart disease Social History Social History Smoking packs per day: 1 Smoking cigarettes per day: 20.0 Years smoked: 10 Smoking pack-years: 10.00 Smoking status: Current every day smoker Tobacco type: e-cigarettes/vaping Alcohol intake: current Substance use: never Substance use type: does not use Lack of Food: Never True Current Housing: I Have Housing Concerned About Future Housing: No Difficulty Paying Gas/Electric Bills: No Difficulty Paying for Meds: No Currently Unemployed: No Education: High School Diploma/GED Difficulty w/ Childcare or Family Care: No Living arrangements: alone Spiritual care concerns: No Comments At the time of my signature, I reviewed and agree with the nursing past medical, surgical, social, and family history. There is no relevant family history pertinent to the patient complaint. Exam Narrative: GENERAL: This is a well-nourished, well-developed patient, in no apparent distress. HEAD: normocephalic, atraumatic. EYES: Sclera clear/white. Vision is grossly intact. EARS: External ears normal, auditory canals clear and without drainage, TMs normal without perforation. Hearing grossly intact. NOSE: External nose normal. + congestion. + sinus tenderness. THROAT: Mucous membranes moist, oropharyngeal erythema. NECK: Neck supple, non-tender without lymphadenopathy, masses or thyromegaly. CARDIOVASCULAR: Regular rate and rhythm without murmurs, gallops, or rubs. RESPIRATORY: Clear to auscultation. Breath sounds equal bilaterally. No wheezes, rales, or rhonchi. GASTROINTESTINAL: Abdomen soft, non-tender, nondistended. Bowel sounds are active. No hepato-splenomegaly, or palpable masses. No guarding. SKIN: warm, intact with no suspicious lesions or rash, good texture and turgor. NEURO: awake, alert, and oriented to person, place and time. There were no obvious focal neurologic abnormalities. Course Course Level of Care: Express Care Visit Vital Signs Vital signs: Vital Signs Temperature 98.8 F 08/08/25 15:30 Pulse Rate 68 08/08/25 15:30 Respiratory Rate 16 08/08/25 15:30 Blood Pressure 123/77 08/08/25 15:30 Pulse Oximetry 97 08/08/25 15:30 Temperature 98.8 F 08/08/25 15:30 Pulse Rate 68 08/08/25 15:30 Respiratory Rate 16 08/08/25 15:30 Blood Pressure 123/77 08/08/25 15:30 Pulse Oximetry 97 08/08/25 15:30 Reviewed MDM - URI/Sore Throat MDM Narrative Medical decision making narrative: Go to the ER for any new or worsening symptoms. Avoid smoking/second-hand smoke. Continue to take Tylenol or Motrin for pain. Increase your Vitamin C intake. Use a humidifier or vaporizer at night. Take Medications as prescribed. Drink plenty of water. 8-10 glasses per day. Use flonase 2 times per day for 5 days then as needed Take mucinex 2 times per day and be sure to take with 8oz of water. Follow up with Primary provider if not getting better. Differential Diagnosis Differential diagnosis: Likely upper respiratory infection, sinusitis, viral infection and bronchitis Critical Care Time Critical Care Time Critical Care Time: No Discharge Plan Discharge Clinical Impression: Acute bacterial sinusitis Patient Disposition: Home Condition: Stable Instructions: Antibiotic Form, Sinusitis (ED) Additional Instructions: Go to the ER for any new or worsening symptoms. Avoid smoking/second-hand smoke. Continue to take Tylenol or Motrin for pain. Increase your Vitamin C intake. Use a humidifier or vaporizer at night. Take Medications as prescribed. Drink plenty of water. 8-10 glasses per day. Use flonase 2 times per day for 5 days then as needed Take mucinex 2 times per day and be sure to take with 8oz of water. Follow up with Primary provider if not getting better. Patient Language: [place] Prescriptions: New amoxicillin-pot clavulanate 875-125 mg tablet 1 tablet PO Q12H 10 Days Qty: 20 0RF fluticasone propionate [Flonase Allergy Relief] 50 mcg/actuation spray,suspension 1 spray intranasal BID Qty: 16 0RF Rx Instructions: administer into each nostril albuterol sulfate [Ventolin HFA] 90 mcg/actuation HFA aerosol inhaler 1 inh inhalation QID PRN (Reason: shortness of breath or wheezing) Qty: 6.7 0RF Follow-up/Referrals: Marleni Mosley DO [Primary Care Provider, [facility]] Time of Disposition: 15:42
== END 2025-08-08 15:45 | disposition home or self-care (01) ==
PROVIDERS: Emergency Provider Nurse Practitioner; PCP Family Medicine
DX: J01.90 Acute sinusitis, unspecified (principal); F17.290 Nicotine dependence, other tobacco product, uncomplicated
CPT/HCPCS: 99213; G0463